=== PATIENT | female | born 1960 ===

== ENCOUNTER 2018-03-17 20:56 | Emergency (ER) | payer MEDICAID, OTHER ==
[2018-03-17 21:01] VITALS: BMI 29.2
[2018-03-17] MEDS ORDERED: Folic Acid 1 MG, Thiamine 100 MG, Multivitamin (MVI) 10 ML in Dextrose 5% In Water 1,00... IV SCH (21:15)
--- NOTE | 2018-03-17 22:10 | ED PDOC ---
Arrival/HPI - General Chief Complaint: Alcohol Ingestion Time Seen by Provider: 03/17/18 21:13 Historian: Patient - History of Present Illness Narrative History of Present Illness (Text): 03/17/18 22:22 Patient is a 57 F with a history of diabetes mellitus II who is presenting via EMS for alcohol intoxication. Patient states she was at a [employer] restaurant by herself and consumed a glass of champagne, a glass of wine and a martini and doesn't remember much after that stating she became very drunk and started vomiting. Patient states whenever she vomits, she also tends to have nose bleeds. Patient states she drank because she was feeling lonely since her father in october, her in November, and her son is away for the [employer]. Patient states she currently has epigastric pain which is a sharp pain whenever she eats. States that this pain has started since her and when she eats she has episodes of vomiting from time to time. Patient denies trauma from what she can recall, denies dizziness, loss of consciousness. ROS limited due to intoxication. Patient denies suicidal ideation , stating she just wanted to celebrate the end of the semester. Time/Duration: Prior to Arrival Past Medical History - Provider Review Nursing Documentation Reviewed: Yes - Infectious Disease Hx of Infectious Diseases: None - Cardiac Hx Cardiac Disorders: No - Pulmonary Hx Bronchitis: Yes - Neurological Hx Neurological Disorder: No - HEENT Hx HEENT Disorder: No Other/Comment: TONSILLECTOMY - Renal Hx Renal Disorder: No - Endocrine/Metabolic Hx Endocrine Disorders: No - Hematological/Oncological Hx Blood Disorders: No Hx AIDS: No - Integumentary Hx Dermatological Disorder: No - Musculoskeletal/Rheumatological Hx Musculoskeletal Disorders: Yes (sciatica) Hx Falls: No - Gastrointestinal Hx Gall Bladder Disease: Yes (CHOLECYSTECTOMY) - Genitourinary/Gynecological Hx Genitourinary Disorders: No Other/Comment: LEFT LUMPECTOMY - Psychiatric Hx Psychophysiologic Disorder: No Hx Substance Use: No - Surgical History Hx Cholecystectomy: Yes Hx Tonsillectomy: Yes Family/Social History - Physician Review Nursing Documentation Reviewed: Yes Family/Social History: Other (non-contrubitory) Smoking Status: Never Smoked Hx Alcohol Use: No Hx Substance Use: No Allergies/Home Meds Allergies/Adverse Reactions: Allergies codeine Allergy (Verified 05/20/17 22:05) tachycardia Review of Systems - Review of Systems Systems not reviewed;Unavailable: Intoxicated Physical Exam - Physical Exam Physical Exam Limitations: Intoxication Vital Signs Reviewed: Yes Vital Signs Temp Pulse Resp BP Pulse Ox 03/17/18 21:26 97.2 F L 64 18 172/89 H 95 Temperature: Afebrile Blood Pressure: Normal Pulse: Regular Respiratory Rate: Normal Appearance: Positive for: Well-Appearing, Non-Toxic, Comfortable Pain Distress: None Mental Status: Positive for: Alert and Oriented X 3 Finger Stick Blood Glucose: 128 - Systems Exam Head: Present: Atraumatic, Normocephalic Pupils: Present: PERRL Extroacular Muscles: Present: EOMI Conjunctiva: Present: Normal Mouth: Present: Moist Mucous Membranes Nose (Internal): Present: Other (dried blood from previous vomiting) Neck: Present: Normal Range of Motion Respiratory/Chest: Present: Clear to Auscultation. No: Wheezes, Rhonchi Abdomen: Present: Tenderness. No: Distention, Peritoneal Signs Upper Extremity: Present: Normal Inspection, Edema Lower Extremity: Present: Normal Inspection, Edema Neurological: Present: GCS=15, CN II-XII Intact, Motor Func Grossly Intact. No : Speech Normal (altered due to intoxication) Skin: Present: Warm, Normal Color. No: Rashes Psychiatric: Present: Intoxicated Medical Decision Making ED Course and Treatment: 03/17/18 22:[address], CT head, Cervical spine x-ray; official read pending Lipase ordered for abdominal pain; zofran and protonix given Alcohol level, [facility] Follow up trop and EKG Patient history endorsed to Dr. Abarca 03/17/18 22:55 Patient re-assessed and symptoms are improving. Patient is now able to express herself without slurring speech. - RAD Interpretation Radiology Orders: 03/17/18 21:58 HEAD W/O CONTRAST [CT] Stat MAXILLOFACIAL W/O CONTRAST [CT] Stat CERVICAL SPINE AP & LATERAL [RAD] Stat - Medication Orders Current Medication Orders: Folic Acid 1 mg/ Thiamine HCl 100 mg/ Multivitamins/Vitamin C 10 ml/ Dextrose 1 ,011.2 mls @ 100 mls/hr IV .Q10H7M ELIANA Last Admin: 03/17/18 21:44 Dose: 100 mls/hr eMAR Start Stop Document 03/17/18 21:44 CNR (Rec: 03/17/18 21:45 CNR [id number]) Intravenous Solution Start Date 03/17/18 Start Time 21:45 Discontinued Medications Ondansetron HCl (Zofran Inj) 4 mg IVP STAT STA Stop: 03/17/18 21:15 Last Admin: 03/17/18 21:24 Dose: 4 mg IVP Administration Document 03/17/18 21:24 CNR (Rec: 03/17/18 21:25 CNR [id number]) Charges for Administration # of IVP Administrations 1 Pantoprazole Sodium (Protonix Inj) 40 mg IVP STAT STA Stop: 03/17/18 22:11 Last Admin: 03/17/18 22:50 Dose: 40 mg Disposition/Present on Arrival - Present on Arrival Any Indicators Present on Arrival: No History of DVT/PE: No History of Uncontrolled Diabetes: No Urinary Catheter: No History of Decub. Ulcer: No History Surgical Site Infection Following: None - Disposition Have Diagnosis and Disposition been Completed?: No Diagnosis: Alcohol intoxication Referrals: PCP,NO [Non-Staff] - Follow up with primary Forms: [employer] (Beninese)
--- NOTE | 2018-03-17 22:54 | ED PDOC ---
Physical Exam Vital Signs Reviewed: Yes Vital Signs Temp Pulse Resp BP Pulse Ox 03/18/18 01:29 68 15 124/68 93 L 03/17/18 21:26 97.2 F L 64 18 172/89 H 95 Temperature: Afebrile Blood Pressure: Hypertensive Pulse: Regular Respiratory Rate: Normal Appearance: Positive for: Well-Appearing, Non-Toxic, Comfortable Pain Distress: None Mental Status: Positive for: Alert and Oriented X 3 Finger Stick Blood Glucose: 128 - Systems Exam Head: Present: Atraumatic, Normocephalic Pupils: Present: PERRL Extroacular Muscles: Present: EOMI Conjunctiva: Present: Normal Ears: Present: Normal Mouth: Present: Moist Mucous Membranes Pharnyx: Present: Normal Nose (External): Present: Atraumatic Nose (Internal): Present: Normal Inspection Neck: Present: Normal Range of Motion Respiratory/Chest: Present: Clear to Auscultation, Good Air Exchange Cardiovascular: Present: Regular Rate and Rhythm Abdomen: Present: Tenderness, Other (mild epigastric discomfort) Back: Present: Normal Inspection, Other (no c-t-l spinal or paraspinal tenderness) Upper Extremity: Present: Normal Inspection, Norm 2-Pt Discrimination Lower Extremity: Present: Normal Inspection Neurological: Present: GCS=15, CN II-XII Intact, Speech Normal, Motor Func Grossly Intact Skin: Present: Warm, Normal Color Psychiatric: Present: Alert, Oriented x 3, Normal Insight, Normal Concentration Medical Decision Making ED Course and Treatment: Patient is a 57 F with a history of diabetes mellitus II who is presenting via EMS for alcohol intoxication. Patient states she was at a [employer] restaurant by herself and consumed a glass of wine and a martini and doesn't remember much after that stating she became very drunk and started vomiting. Patient states whenever she vomits, she also tends to have nose bleeds. Patient states she drank because she was feeling lonely since her father in october, her in November, and her son is away for the [employer]. Patient states she currently has epigastric pain which is a sharp pain whenever she eats. States that this pain has started since her and when she eats she has episodes of vomiting from time to time. Patient denies trauma from what she can recall, denies dizziness, loss of consciousness. ROS limited due to intoxication. ct head FINDINGS: Brain: Mild atrophy. No intracranial hemorrhage. No mass. No edema. Ventricles: No hydrocephalus. Bones/joints: No calvarial fracture. Soft tissues: Unremarkable. Mastoid air cells: No mastoid effusion. IMPRESSION: 1. No intracranial hemorrhage. 2. See facial bone CT report for additional details. ct facial FINDINGS: Limitations: Lack of intravenous contrast. Bones/joints: Depressed fracture medial wall of RIGHT orbit. Degenerative changes of cervical spine. Soft tissues: Minimal RIGHT maxillary/zygomatic soft tissue swelling. Focal soft tissue swelling along left mandible. Orbits: Minimal air within RIGHT orbit. Sinuses: Scattered mild mucosal thickening of ethmoid sinuses. No air-fluid levels. Dental: Periapical lucency/cortical erosion along left lower molar compatible with dental disease. IMPRESSION: 1. Facial fracture as above. 2. Dental disease of left normal or with overlying soft tissue swelling. Clinical correlation is needed. 3. Incidental/non-acute findings are described above. c-spine xray FINDINGS: Vertebrae: No acute fracture. Normal alignment. Disc spaces: Moderate degenerative disc disease within mid to lower cervical spine. Soft tissues: Unremarkable. Vasculature: Mild atherosclerotic disease of left carotid artery. IMPRESSION: 1. No fracture. 2. If neck pain persists, consider MRI for further evaluation. 3. Incidental/non-acute findings are described above. CXR: FINDINGS: Limitations: Rotation - mild. Radiographic technique - mild. Lungs: Mild underinflation. No consolidation. Pleural space: No pleural effusion. No pneumothorax. Heart: No cardiomegaly. Mediastinum: Unremarkable. Bones/joints: No displaced fracture. Tubes, lines and devices: Leads overlying chest. Upper abdomen: Surgical clips within RIGHT upper quadrant. IMPRESSION: 1. No definite acute cardiopulmonary disease. 2. Incidental/non-acute findings are described above. you were treated in the ED today for for alcohol intoxication, with falls/ unclear head injury, with vomiting with nose bleed but no vomiting up blood and feels lonely but otherwise without any thoughts to harm self or others or neck pain/loss of consciousness/hallucinations/headache/dizziness/difficulty breathing/chest pain/abdomen pain/numbness/tingling/loss of limb function/pain with urination. You were otherwise breathing easily, talking easily, good strength/sensation, walking easily, clear lungs, no abdomen tenderness, good visual acuity in both eyes and good eye movement without pain without over cut but mild superficial abrasions without crepitus/crunching on the skin, no spinal tenderness, no fever temp 97.2, stable heart rate 64, stable breathing rate 18, excellent oxygen level 95% room air, elevated blood pressure 172/89 which we recommend repeat in 2-3 days primary care office to determine further treatment, you have blood tests no infection count 8, stable blood level hemoglobin 12/platelets 306, stable chemistry, glucose elevated 171, liver AST/ ALT elevated 180/96, heart blood test less than 0.01, lipase 89 normal, alcohol elevated 211, salicylate negative, acetaminophen negative, radiology ct head no acute intracranial, ct facial Depressed fracture medial wall of RIGHT orbit, c- spine xray no fracture, chest xray no definate acute cardiopulmonary disease, ECG normal sinus rhythm, saline, zofran, protonix, keflex, tetanus booster as you felt it was out of date past 5 years, observation done in the ED with improvement, discussed with ophthalmology Dr. Augustus Stroud regarding your Depressed fracture medial wall of RIGHT orbit and who stated no immediate intervention at this time and can followup as an outpatient to ensure further care, counselled to stop drinking alcohol and thus discharged home with safe ride. 1. Recommend keflex as directed for fracture infection prevention. 2. Recommend tylenol as directed for pain. 3. Recommend follow-up primary care 2-3 days to review symptoms, referral to gastroenterology clinic to review your symptoms, referral to detoxification clinic to review symptoms and stop drinking alcohol, referral to ear nose throat clinic for nasal bleeding intermittently but without active bleeding in the ED to ensure further care, referral to ophthalmology clinic for Depressed fracture medial wall of RIGHT orbit to ensure further care and call [phone] Augustus Stroud ophthalmology to review your care to ensure further care, referral to dentistry for overall care/lucency to ensure no complications/cancer development, referral to endocrine clinic for mildly elevated blood sugar for further care, referral to gastroenterology clinic for mildly elevated liver tests AST/ALT to ensure further care. 4. recommend family/friends monitor you every 1-2 hours for alertness or any unusual drowsiness or any medical condition for 24hrs or If any worsening pain, fever, chills, nausea, vomiting, difficulty breathing, numbness, loss of limb function, pain with urination or any medical condition at any time then return to the ED. 03/18/18 07:27 Reassessment Condition: Re-examined, Improved - Lab Interpretations Lab Results: 03/17/18 22:50 03/17/18 23:30 Lab Results 03/17/18 23:30: Lipase 105 03/17/18 23:30: Salicylates < 1 L, Acetaminophen < 10.0 L 03/17/18 23:30: Alcohol, Quantitative 211 H 03/17/18 23:30: Sodium 147, Potassium 4.1, Chloride 104, Carbon Dioxide 23, Anion Gap 24 H, BUN 13, Creatinine 1.2, Est GFR ( Amer) 56, Est GFR (Non- Af Amer) 46, Random Glucose 171 H, Calcium 9.4, Phosphorus 3.9, Magnesium 1.8, Total Bilirubin 0.3, AST 180 H, ALT 96 H, Alkaline Phosphatase 60, Troponin I < 0.01, Total Protein 8.0, Albumin 4.7, Globulin 3.3, Albumin/Globulin Ratio 1.4, Lipase 89 03/17/18 22:50: WBC 8.1 D, RBC 4.37, Hgb 12.9, Hct 38.4, MCV 87.9, MCH 29.5, MCHC 33.6, RDW 13.7, Plt Count 306, MPV 9.3, Gran % 77.6 H, Lymph % (Auto) 19.4 L, [place] % (Auto) 2.0, Eos % (Auto) 0.6 L, Baso % (Auto) 0.4, Gran # 6.30, Lymph # (Auto) 1.6, [place] # (Auto) 0.2, Eos # (Auto) 0.1, Baso # (Auto) 0.03 I have reviewed the lab results: Yes - RAD Interpretation Radiology Orders: 03/17/18 21:58 HEAD W/O CONTRAST [CT] Stat MAXILLOFACIAL W/O CONTRAST [CT] Stat CERVICAL SPINE AP & LATERAL [RAD] Stat 03/17/18 22:58 CHEST PORTABLE [RAD] Stat - EKG Interpretation Interpreted by ED Physician: Yes (NSR, flipped t waves avr, v1, flattened) Type: 12 lead EKG - Medication Orders Current Medication Orders: Folic Acid 1 mg/ Thiamine HCl 100 mg/ Multivitamins/Vitamin C 10 ml/ Dextrose 1 ,011.2 mls @ 100 mls/hr IV .Q10H7M ELIANA Last Admin: 03/17/18 21:44 Dose: 100 mls/hr eMAR Start Stop Document 03/17/18 21:44 CNR (Rec: 03/17/18 21:45 CNR [id number]) Intravenous Solution Start Date 03/17/18 Start Time 21:45 End Date 03/18/18 End time 02:37 Total Infusion Time 292 Discontinued Medications Acetaminophen (Tylenol 325mg Tab) 650 mg PO STAT STA Stop: 03/18/18 03:09 Last Admin: 03/18/18 02:43 Dose: 650 mg Ondansetron HCl (Zofran Inj) 4 mg IVP STAT STA Stop: 03/17/18 21:15 Last Admin: 03/17/18 21:24 Dose: 4 mg IVP Administration Document 03/17/18 21:24 CNR (Rec: 03/17/18 21:25 CNR [id number]) Charges for Administration # of IVP Administrations 1 Pantoprazole Sodium (Protonix Inj) 40 mg IVP STAT STA Stop: 03/17/18 22:11 Last Admin: 03/17/18 22:50 Dose: 40 mg IVP Administration Document 03/17/18 22:50 CNR (Rec: 03/17/18 22:52 CNR [id number]) Charges for Administration # of IVP Administrations 1 Disposition/Present on Arrival - Present on Arrival Any Indicators Present on Arrival: No History of DVT/PE: No History of Uncontrolled Diabetes: No Urinary Catheter: No History of Decub. Ulcer: No History Surgical Site Infection Following: None - Disposition Have Diagnosis and Disposition been Completed?: Yes Diagnosis: Alcohol intoxication, Orbital fracture, Head injury Disposition: HOME/ ROUTINE Disposition Time: 07:26 Patient Plan: Discharge Patient Problems: Current Active Problems Problem Status Onset Alcohol intoxication Acute Condition: IMPROVED Discharge Instructions (ExitCare): Alcohol Abuse and Alcoholism (DC), Head Injury Observation (DC), Skull and Facial Fractures (DC) Additional Instructions: you were treated in the ED today for for alcohol intoxication, with falls/ unclear head injury, with vomiting with nose bleed but no vomiting up blood and feels lonely but otherwise without any thoughts to harm self or others or neck pain/loss of consciousness/hallucinations/headache/dizziness/difficulty breathing/chest pain/abdomen pain/numbness/tingling/loss of limb function/pain with urination. You were otherwise breathing easily, talking easily, good strength/sensation, walking easily, clear lungs, no abdomen tenderness, good visual acuity in both eyes and good eye movement without pain without over cut but mild superficial abrasions without crepitus/crunching on the skin, no spinal tenderness, no fever temp 97.2, stable heart rate 64, stable breathing rate 18, excellent oxygen level 95% room air, elevated blood pressure 172/89 which we recommend repeat in 2-3 days primary care office to determine further treatment, you have blood tests no infection count 8, stable blood level hemoglobin 12/platelets 306, stable chemistry, glucose elevated 171, liver AST/ ALT elevated 180/96, heart blood test less than 0.01, lipase 89 normal, alcohol elevated 211, salicylate negative, acetaminophen negative, radiology ct head no acute intracranial, ct facial Depressed fracture medial wall of RIGHT orbit, c- spine xray no fracture, chest xray no definate acute cardiopulmonary disease, ECG normal sinus rhythm, saline, zofran, protonix, keflex, tetanus booster as you felt it was out of date past 5 years, observation done in the ED with improvement, discussed with ophthalmology Dr. Augustus Stroud regarding your Depressed fracture medial wall of RIGHT orbit and who stated no immediate intervention at this time and can followup as an outpatient to ensure further care, counselled to stop drinking alcohol and thus discharged home with safe ride. 1. Recommend keflex as directed for fracture infection prevention. 2. Recommend tylenol as directed for pain. 3. Recommend follow-up primary care 2-3 days to review symptoms, referral to gastroenterology clinic to review your symptoms, referral to detoxification clinic to review symptoms and stop drinking alcohol, referral to ear nose throat clinic for nasal bleeding intermittently but without active bleeding in the ED to ensure further care, referral to ophthalmology clinic for Depressed fracture medial wall of RIGHT orbit to ensure further care and call [phone] Augustus Stroud ophthalmology to review your care to ensure further care, referral to dentistry for overall care/lucency to ensure no complications/cancer development, referral to endocrine clinic for mildly elevated blood sugar for further care, referral to gastroenterology clinic for mildly elevated liver tests AST/ALT to ensure further care. 4. recommend family/friends monitor you every 1-2 hours for alertness or any unusual drowsiness or any medical condition for 24hrs or If any worsening pain, fever, chills, nausea, vomiting, difficulty breathing, numbness, loss of limb function, pain with urination or any medical condition at any time then return to the ED. Prescriptions: Cephalexin [cephalexin] 250 mg PO Q6 3 Days #12 cap Referrals: PCP,NO [Primary Care Provider] - Follow up with primary Forms: [employer] (Faroese)
[2018-03-17 23:00] LABS: BASO # 0.03 K/mm3 (0.0-2.0); BASO % 0.4 % (0.0-3.0); EOS # 0.1 (0.0-0.7); EOS % 0.6 % (1.5-5.0); GRAN # 6.3 (1.4-6.5); GRAN % 77.6 % (50.0-68.0); HEMOGLOBIN 12.9 g/dL (12.0-16.0); LYMPH # 1.6 (1.2-3.4); LYMPH % 19.4 % (22.0-35.0); MEAN CELL VOLUME 87.9 fl (80.0-105.0); MEAN CORPUSCULAR HEMOGLOBIN 29.5 pg (25.0-35.0); MEAN CORPUSCULAR HGB CONC 33.6 g/dl (31.0-37.0); MEAN PLATELET VOLUME 9.3 fl (7.0-11.0); MONO # 0.2 (0.1-0.6); RBC 4.37 10^6/uL (3.5-6.1); RED CELL DISTRIBUTION WIDTH 13.7 % (11.5-14.5); WHITE BLOOD COUNT 8.1 10^3/ul (4.5-11.0)
--- NOTE | 2018-03-17 23:13 | CT ---
EXAM: CT Head Without Intravenous Contrast CLINICAL HISTORY: 57 years old, female; Injury or trauma; Fall; Initial encounter; Abrasion; Face; Injury date: 03-17-18; Injury details: Abrasion to rt side of face; Additional info: Trauma, alcohol intoxication TECHNIQUE: Axial computed tomography images of the head/brain without intravenous contrast. All CT scans at this facility use one or more dose reduction techniques, viz.: automated exposure control; ma/kV adjustment per patient size (including targeted exams where dose is matched to indication; i.e. head); or iterative reconstruction technique. Coronal and sagittal reformatted images were created and reviewed. COMPARISON: No relevant prior studies available. FINDINGS: Brain: Mild atrophy. No intracranial hemorrhage. No mass. No edema. Ventricles: No hydrocephalus. Bones/joints: No calvarial fracture. Soft tissues: Unremarkable. Mastoid air cells: No mastoid effusion. IMPRESSION: 1. No intracranial hemorrhage. 2. See facial bone CT report for additional details.
--- NOTE | 2018-03-17 23:19 | CT ---
EXAM: CT Maxillofacial Without Intravenous Contrast CLINICAL HISTORY: 57 years old, female; Injury or trauma; Fall; Initial encounter; Abrasion; Cheek bone; Right; Injury date: 03-17-18; Injury details: Abrasion to rt side of face; Additional info: Trauma, alcohol intoxication TECHNIQUE: Axial computed tomography images of the face without intravenous contrast. All CT scans at this facility use one or more dose reduction techniques, viz.: automated exposure control; ma/kV adjustment per patient size (including targeted exams where dose is matched to indication; i.e. head); or iterative reconstruction technique. Coronal and sagittal reformatted images were created and reviewed. COMPARISON: No relevant prior studies available. FINDINGS: Limitations: Lack of intravenous contrast. Bones/joints: Depressed fracture medial wall of RIGHT orbit. Degenerative changes of cervical spine. Soft tissues: Minimal RIGHT maxillary/zygomatic soft tissue swelling. Focal soft tissue swelling along left mandible. Orbits: Minimal air within RIGHT orbit. Sinuses: Scattered mild mucosal thickening of ethmoid sinuses. No air-fluid levels. Dental: Periapical lucency/cortical erosion along left lower molar compatible with dental disease. IMPRESSION: 1. Facial fracture as above. 2. Dental disease of left normal or with overlying soft tissue swelling. Clinical correlation is needed. 3. Incidental/non-acute findings are described above.
--- NOTE | 2018-03-17 23:22 | RAD ---
EXAM: XR Cervical Spine, 2 or 3 Views CLINICAL HISTORY: 57 years old, female; Injury or trauma; Fall; Initial encounter; Concussion /head injury; Additional info: Trauma, alcohol intoxication TECHNIQUE: Frontal and lateral views of the cervical spine. COMPARISON: No relevant prior studies available. FINDINGS: Vertebrae: No acute fracture. Normal alignment. Disc spaces: Moderate degenerative disc disease within mid to lower cervical spine. Soft tissues: Unremarkable. Vasculature: Mild atherosclerotic disease of left carotid artery. IMPRESSION: 1. No fracture. 2. If neck pain persists, consider MRI for further evaluation. 3. Incidental/non-acute findings are described above.
[2018-03-17 23:54] LABS: ALB/GLOB RATIO 1.4 (1.1-1.8); ALBUMIN 4.7 g/dL (3.0-4.8); ALT/SGPT 96 U/L (7-56); AST/SGOT 180 U/L (14-36); BLOOD UREA NITROGEN 13 mg/dL (7-21); CALCIUM 9.4 mg/dL (8.4-10.5); GFR AFRICAN-AMERICAN 56; GFR NON-AFRICAN AMERICAN 46; LIPASE 89 U/L (23-300)
--- NOTE | 2018-03-17 23:56 | RAD ---
EXAM: XR Chest, 1 View CLINICAL HISTORY: 57 years old, female; Pain; Other: Alochol intoxication; Additional info: 57yof, with alcohol intoxication TECHNIQUE: Frontal view of the chest. COMPARISON: CR - CHEST TWO VIEWS (PA/LAT) 2016-01-04 08:27 FINDINGS: Limitations: Rotation - mild. Radiographic technique - mild. Lungs: Mild underinflation. No consolidation. Pleural space: No pleural effusion. No pneumothorax. Heart: No cardiomegaly. Mediastinum: Unremarkable. Bones/joints: No displaced fracture. Tubes, lines and devices: Leads overlying chest. Upper abdomen: Surgical clips within RIGHT upper quadrant. IMPRESSION: 1. No definite acute cardiopulmonary disease. 2. Incidental/non-acute findings are described above.
[2018-03-18 00:05] LABS: TROPONIN I < 0.01 ng/mL
[2018-03-18 00:32] LABS: ACETAMINOPHEN < 10.0 ug/ml (10.0-20.0); SALICYLATE < 1 mg/dL (2.0-20.0)
[2018-03-18 01:32] VITALS: PULSE 68
[2018-03-18] MEDS ORDERED: TDAP Vaccine 0.5 mL Syr IM ONE (07:25)
[2018-03-18 07:42] VITALS: BP 141/80; RESP 18; TEMP 97.1; O2SAT 100
--- NOTE | 2018-03-18 08:47 | CARD ---
APPROVED REPORT EKG Measurement Heart [id number] <Conclusion> Normal sinus rhythm Left axis deviation PRWP V 1 - 6, possibly due to lead poitioning.
== END 2018-03-18 07:41 | disposition home or self-care (01) ==
LOC: ED 20:56
DX: F10.129 Alcohol abuse with intoxication, unspecified (principal); S02.81XA Fracture of other specified skull and facial bones, right side, initial encounter for closed fracture; X58.XXXA Exposure to other specified factors, initial encounter; E11.9 Type 2 diabetes mellitus without complications
CPT/HCPCS: 70450; 70486; 71045; 72040; 80053; 80320; 80329; 83690; 83735; 84100; 84484; 85025; 90471; 90715; 90791; 93005; 96365; 96366; 96375; 99284; C9113; J2405; J3411; J7070

== ENCOUNTER 2018-09-12 18:26 | Inpatient (IN) | payer MEDICAID, OTHER ==
[2018-09-12 18:26] VITALS: BMI 29.2
[2018-09-12 20:09] LABS: HEMOGLOBIN 12.4 g/dL (12.0-16.0); MEAN CELL VOLUME 89.9 fl (80.0-105.0); MEAN CORPUSCULAR HEMOGLOBIN 29.7 pg (25.0-35.0); MEAN CORPUSCULAR HGB CONC 33.1 g/dl (31.0-37.0); MEAN PLATELET VOLUME 9.3 fl (7.0-11.0); RBC 4.17 10^6/uL (3.5-6.1); RED CELL DISTRIBUTION WIDTH 13.2 % (11.5-14.5); WHITE BLOOD COUNT 13.1 10^3/uL (4.5-11.0)
[2018-09-12 20:15] LABS: ALB/GLOB RATIO 1.2 (1.1-1.8); ALBUMIN 4.7 g/dL (3.0-4.8); ALT/SGPT 28 U/L (7-56); AST/SGOT 35 U/L (14-36); BLOOD UREA NITROGEN 16 mg/dL (7-21); CALCIUM 9.8 mg/dL (8.4-10.5); GFR NON-AFRICAN AMERICAN 46; LIPASE 57 U/L (23-300)
[2018-09-12 20:20] LABS: INR 1.07; PARTIAL THROMBOPLASTIN TIME 27.5 Seconds (25.1-36.5); PROTHROMBIN TIME 12.2 SECONDS (9.4-12.5)
--- NOTE | 2018-09-12 20:29 | ED PDOC ---
Arrival/HPI - General Chief Complaint: GI Problem Time Seen by Provider: 09/12/18 19:15 Historian: Patient - History of Present Illness Narrative History of Present Illness (Text): 09/12/18 20:25 58 year old female, whose past medical history includes diabetes and hypertension, presents to the emergency department with nausea and vomiting, since today. Patient states she has also been having a dizzy funny sensation in her head at times. Patient informs having an area of swelling in her right inner thigh. Patient states she was told by her PMD that it was an infection, and was treated by oral antibiotics. Patient also informs having a subjective fever. Patient denies any chest pain, abdominal pain, diarrhea, or any other complaints. Time/Duration: Prior to Arrival Symptom Course: Unchanged Past Medical History - Provider Review Nursing Documentation Reviewed: Yes - Infectious Disease Hx of Infectious Diseases: None - Cardiac Hx Cardiac Disorders: Yes Hx Hypertension: Yes - Pulmonary Hx Respiratory Disorders: Yes Hx Bronchitis: Yes - Neurological Hx Neurological Disorder: No - HEENT Hx HEENT Disorder: Yes Other/Comment: TONSILLECTOMY - Renal Hx Renal Disorder: No - Endocrine/Metabolic Hx Endocrine Disorders: Yes Hx Diabetes Mellitus Type 2: Yes - Hematological/Oncological Hx Blood Disorders: No - Integumentary Hx Dermatological Disorder: Yes Other/Comment: SKIN INFECTION - Musculoskeletal/Rheumatological Hx Musculoskeletal Disorders: Yes Hx Back Pain: Yes - Gastrointestinal Hx Gastrointestinal Disorders: Yes Hx Gall Bladder Disease: Yes (CHOLECYSTECTOMY) - Genitourinary/Gynecological Hx Genitourinary Disorders: Yes Other/Comment: LEFT LUMPECTOMY - Psychiatric Hx Psychophysiologic Disorder: No Hx Substance Use: No - Surgical History Hx Cholecystectomy: Yes Hx Tonsillectomy: Yes Family/Social History - Physician Review Nursing Documentation Reviewed: Yes Family/Social History: No Known Family HX Smoking Status: Never Smoked Hx Alcohol Use: No Hx Substance Use: No Allergies/Home Meds Allergies/Adverse Reactions: Allergies codeine Allergy (Verified 09/12/18 18:35) tachycardia Home Medications: Home Meds Medication Instructions Recorded Confirmed Empagliflozin [Jardiance] 25 mg PO DAILY 09/12/18 09/12/18 Lisinopril [Zestril] 10 mg PO DAILY 09/12/18 09/12/18 Metformin HCl [Metformin] 500 mg PO BID 11/08/18 11/08/18 Review of Systems - Physician Review All systems were reviewed & negative as marked: Yes - Review of Systems Constitutional: Fevers Cardiovascular: absent: Chest Pain Gastrointestinal: Nausea, Vomiting. absent: Abdominal Pain, Diarrhea Skin: Rash Neurological: Dizziness Physical Exam Vital Signs Reviewed: Yes Vital Signs Temp Pulse Resp BP Pulse Ox 09/12/18 19:59 75 18 152/78 H 98 09/12/18 18:57 98.2 F 78 18 159/86 H 98 Temperature: Afebrile Blood Pressure: Hypertensive Pulse: Regular Respiratory Rate: Normal Appearance: Positive for: Well-Appearing, Non-Toxic, Comfortable Pain Distress: None Mental Status: Positive for: Alert and Oriented X 3 - Systems Exam Head: Present: Atraumatic, Normocephalic Pupils: Present: PERRL Extroacular Muscles: Present: EOMI Conjunctiva: Present: Normal Mouth: Present: Moist Mucous Membranes Neck: Present: Normal Range of Motion Respiratory/Chest: Present: Clear to Auscultation, Good Air Exchange. No: Re spiratory Distress, Accessory Muscle Use Cardiovascular: Present: Regular Rate and Rhythm, Normal S1, S2. No: Murmurs Abdomen: No: Tenderness, Distention, Peritoneal Signs Back: Present: Normal Inspection Upper Extremity: Present: Normal Inspection. No: Cyanosis, Edema Lower Extremity: Present: Tenderness (Some palpable tenderness to area of swelling), Swelling (Indurated, Non-fluctuant swelling ), Erythema (right inner thigh) Neurological: Present: GCS=15, CN II-XII Intact, Speech Normal, Motor Func Grossly Intact, Normal Sensory Function Skin: Present: Warm, Dry, Normal Color. No: Rashes Psychiatric: Present: Alert, Oriented x 3, Normal Insight, Normal Concentration Medical Decision Making ED Course and Treatment: 09/12/18 20:38 Impression: 58 year old female presents with nausea and vomiting. Plan: -- CT Head -- Chest X-ray -- EKG -- Labs -- Pepcid -- Zofran -- Reassess and disposition Prior Visits: Notes and results from previous visits were reviewed. Progress Notes: 09/12/18 21:34 CT Head reviewed by radiologist, shows: No acute parenchymal abnormality. 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 Clinical correlation advised. 09/12/18 21:35 Chest X-ray reviewed by me, shows: No acute process. 09/12/18 21:37 Case discussed with medical transcription editor and house doctor, Dr. Balderas, who accept admission. - Lab Interpretations Lab Results: 09/12/18 19:52 09/12/18 19:52 Lab Results 09/12/18 19:52: WBC 13.1 H, RBC 4.17, Hgb 12.4, Hct 37.5, MCV 89.9, MCH 29.7, MCHC 33.1, RDW 13.2, Plt Count 324, MPV 9.3 09/12/18 19:52: PT 12.2, INR 1.07, APTT 27.5 09/12/18 19:52: Sodium 143, Potassium 4.6, Chloride 103, Carbon Dioxide 24, Anion Gap 21 H, BUN 16, Creatinine 1.2, Est GFR ( Amer) 56, Est GFR (Non- Af Amer) 46, Random Glucose 169 H, Calcium 9.8, Total Bilirubin 0.7, AST 35, ALT 28, Alkaline Phosphatase 76, Lactate Dehydrogenase 557, Total Creatine Kinase 286 H, CK-MB (CK-2) Pending, CK-MB (CK-2) % Pending, Troponin I Pending, Total Protein 8.6 H, Albumin 4.7, Globulin 3.9, Albumin/Globulin Ratio 1.2, Lipase 57 - RAD Interpretation Radiology Orders: 09/12/18 19:26 HEAD W/O CONTRAST [CT] Stat 09/12/18 19:27 CHEST PORTABLE [RAD] Stat - EKG Interpretation EKG Interpretation (Text): 09/12/18 20:40 Normal Sinus Rhythm @85 bpm Anterolateral Infarct Nonspecific STT Changes Interpreted by ED Physician: Yes Type: 12 lead EKG - Scribe Statement The provider has reviewed the documentation as recorded by the Vidhi Turner Provider Scribe Attestation: All medical record entries made by the Scribe were at my direction and personally dictated by me. I have reviewed the chart and agree that the record accurately reflects my personal performance of the history, physical exam, medical decision making, and the department course for this patient. I have also personally directed, reviewed, and agree with the discharge instructions and disposition. Disposition/Present on Arrival - Present on Arrival Any Indicators Present on Arrival: No History of DVT/PE: No History of Uncontrolled Diabetes: No Urinary Catheter: No History of Decub. Ulcer: No History Surgical Site Infection Following: None - Disposition Have Diagnosis and Disposition been Completed?: Yes Diagnosis: Cellulitis, Vomiting, Diabetes mellitus Disposition: HOSPITALIZED Disposition Time: 21:29 Patient Problems: Current Active Problems Problem Status Onset Cellulitis Acute Diabetes mellitus Acute Vomiting Acute Condition: STABLE Discharge Instructions (ExitCare): Cellulitis (ED) Forms: [employer] (Faroese)
[2018-09-12 20:30] LABS: CK-MB 2.5 ng/mL (0.0-3.6); TROPONIN I < 0.01 ng/mL
[2018-09-12] MEDS ORDERED: Sodium Chloride 0.9% 1,000 ML IV STA (20:35)
[2018-09-12] MEDS ORDERED: Piperacillin/Tazobact 3.375 gm 100 ML IV STA (21:25)
[2018-09-12] MEDS ORDERED: Vancomycin 1gm in NS 250ml 1 GM/250 ML BAG IVPB STA (21:28)
[2018-09-12] MEDS ORDERED: Sodium Chloride 0.9% 1,000 ML IV SCH (22:30)
--- NOTE | 2018-09-12 23:14 | CP.PCM.HP ---
<Milad Ambriz - Last Filed: 09/12/18 23:52> History of Present Illness - History of Present Illness History of Present Illness: Milad Ambriz DO, PGY-1 Hospitalist Admission History and Physical for Dr. Harris CC: nausea/vomiting, dizziness, abscess on R thigh HPI: Ms. Holt is a 58 year old female with PMH of DM2 and HTN who presents to ED with intractable nausea/vomiting worsening over the past day. She saw her PMD today for concern of an area of worsening redness and swelling on her R medial thigh. He prescribed an antibiotic which she filled and took x 1 dose. Since then she has felt nauseous, vomited twice, and has felt dizzy. She believes the antibiotic was most likely amoxicillin, but she has taken augmentin in the past with no reaction. She endorses GUERRIER at this time but denies fever/chills, CP, SOB, blurred vision, changes in urination, or dysuria. PMD: Karlee Looney MD Past Medical Hx: DM2, HTN Past Surgical Hx: lap kianna, tonsillectomy, c/s x 1 Allergies: codeine Home medications: lisinopril 10 daily, metformin 500 BID, jardiance 25 daily, glimepiride 4 BID Family Hx: mother had DM2, CKD. father had lung CA Social Hx: denies tobacco or illicit drug use. Reports social alcohol use but has been seen in ED twice for alcohol intoxication. Pharmacy: [id number] Present on Admission - Present on Admission Any Indicators Present on Admission: No History of DVT/PE: No History of Uncontrolled Diabetes: No Urinary Catheter: No Decubitus Ulcer Present: No Review of Systems - Constitutional Constitutional: absent: Chills, Fever - EENT Eyes: absent: Blurred Vision - Cardiovascular Cardiovascular: absent: Chest Pain, Dyspnea - Respiratory Respiratory: absent: Cough, Dyspnea - Gastrointestinal Gastrointestinal: Abdominal Pain, Nausea, Vomiting - Genitourinary Genitourinary: absent: Change in Urinary Stream, Dysuria Past Patient History - Infectious Disease Hx of Infectious Diseases: None - Past Social History Smoking Status: Never Smoked - CARDIAC Hx Cardiac Disorders: Yes Hx Hypertension: Yes - PULMONARY Hx Respiratory Disorders: Yes Hx Bronchitis: Yes - NEUROLOGICAL Hx Neurological Disorder: No - HEENT Hx HEENT Problems: Yes Other/Comment: TONSILLECTOMY - RENAL Hx Chronic Kidney Disease: No - ENDOCRINE/METABOLIC Hx Endocrine Disorders: Yes Hx Diabetes Mellitus Type 2: Yes - HEMATOLOGICAL/ONCOLOGICAL Hx Blood Disorders: No - INTEGUMENTARY Hx Dermatological Problems: Yes Other/Comment: SKIN INFECTION - MUSCULOSKELETAL/RHEUMATOLOGICAL Hx Musculoskeletal Disorders: Yes Hx Back Pain: Yes - GASTROINTESTINAL Hx Gastrointestinal Disorders: Yes Hx Gall Bladder Disease: Yes (CHOLECYSTECTOMY) - GENITOURINARY/GYNECOLOGICAL Hx Genitourinary Disorders: Yes Other/Comment: LEFT LUMPECTOMY - PSYCHIATRIC Hx Psychophysiologic Disorder: No Hx Substance Use: No - SURGICAL HISTORY Hx Cholecystectomy: Yes Hx Tonsillectomy: Yes Meds Allergies/Adverse Reactions: Allergies Allergy/AdvReac Type Severity Reaction Status Date / Time codeine Allergy tachycardia Verified 09/12/18 18:35 Physical Exam - Constitutional Appears: Non-toxic, No Acute Distress - Head Exam Head Exam: ATRAUMATIC, NORMOCEPHALIC - Eye Exam Eye Exam: EOMI, Normal appearance, PERRL - ENT Exam ENT Exam: Mucous Membranes Moist - Neck Exam Neck exam: Positive for: Full Rom, Normal Inspection - Respiratory Exam Respiratory Exam: Clear to Auscultation Bilateral, NORMAL BREATHING PATTERN. absent: Rales, Rhonchi, Wheezes - Cardiovascular Exam Cardiovascular Exam: REGULAR RHYTHM, RRR, +S1, +S2. absent: Diastolic murmur, Gallop, Rubs, Systolic Murmur - GI/Abdominal Exam GI & Abdominal Exam: Tenderness (mild tenderness to palpation suprapubic region). absent: Distended, Firm, Guarding, Hernia, Organomegaly, Rebound - Extremities Exam Extremities exam: Positive for: full ROM, normal inspection. Negative for: pedal edema - Back Exam Back exam: NORMAL INSPECTION - Neurological Exam Neurological exam: Alert, Oriented x3 - Psychiatric Exam Psychiatric exam: Normal Affect, Normal Mood - Skin Skin Exam: Dry, Intact, Warm Additional comments: An approximately 3 cm indurated plaque on the right medial thigh is firm and warm to palpation; it is most likely a skin abscess Results - Vital Signs Recent Vital Signs: Last Vital Signs Temp 98.2 F 09/12/18 18:57 Pulse 68 09/12/18 22:57 Resp 18 09/12/18 22:57 BP 148/70 09/12/18 22:57 Pulse Ox 98 09/12/18 22:57 - Labs Result Diagrams: 09/12/18 19:52 09/12/18 19:52 Labs: Laboratory Results - last 24 hr 09/12/18 09/12/18 09/12/18 19:52 19:52 19:52 WBC 13.1 H RBC 4.17 Hgb 12.4 Hct 37.5 MCV 89.9 MCH 29.7 MCHC 33.1 RDW 13.2 Plt Count 324 MPV 9.3 PT 12.2 INR 1.07 APTT 27.5 Sodium 143 Potassium 4.6 Chloride 103 Carbon Dioxide 24 Anion Gap 21 H BUN 16 Creatinine 1.2 Est GFR ( Amer) 56 Est GFR (Non-Af Amer) 46 Random Glucose 169 H Calcium 9.8 Total Bilirubin 0.7 AST 35 ALT 28 Alkaline Phosphatase 76 Lactate Dehydrogenase 557 Total Creatine Kinase 286 H CK-MB (CK-2) 2.5 CK-MB (CK-2) % Cancelled Troponin I < 0.01 Total Protein 8.6 H Albumin 4.7 Globulin 3.9 Albumin/Globulin Ratio 1.2 Lipase 57 Assessment & Plan - Assessment and Plan (Free Text) Assessment: 58 yo F with PMH of DM2 and HTN is admitted for management of intractable nausea/vomiting and R thigh abscess. Plan: 1. Intractable nausea/vomiting May be 2/2 recent antibiotic use although patient has not had a reaction to augmentin in the past May also be 2/2 worsening skin/soft tissue infection on the R medial thigh Zofran 4 mg IVP q4h PRN for nausea/vomiting Daily IV protonix until tolerating PO Clear liquid diet, advance as tolerated Fluid supplementation with NS at 100 cc/hr Loperamide PRN for diarrhea 2. R medial thigh abscess Blood cx sent, will also get UA reflex culture Vanc/zosyn started in ED, will continue Surgery consulted for evaluation for I & D ID consulted for further abx recs 3. Hx DM2 Hold home diabetes medicines ISS with point of care fingerstick glucose ACHS while admitted A1c, lipid panel ordered 4. Hx HTN Continue home lisinopril DVT/GI PPX: Lovenox, protonix Full Code Clear liquid diet but advance as tolerated Monitor on med/surg Case and plan reviewed and discussed with my attending Dr. Steven Ambriz, DO IM Resident PGY-1 <Shabbir Harris - Last Filed: 11/09/18 06:24> Results - Vital Signs Recent Vital Signs: Last Vital Signs Temp 98.1 F 09/12/18 23:40 Pulse 85 09/12/18 23:40 Resp 18 09/13/18 02:08 BP 150/82 09/12/18 23:40 Pulse Ox 100 09/12/18 23:40 - Labs Result Diagrams: 09/12/18 19:52 09/12/18 19:52 Labs: Laboratory Results - last 24 hr 09/12/18 09/12/18 09/12/18 19:52 19:52 19:52 WBC 13.1 H RBC 4.17 Hgb 12.4 Hct 37.5 MCV 89.9 MCH 29.7 MCHC 33.1 RDW 13.2 Plt Count 324 MPV 9.3 PT 12.2 INR 1.07 APTT 27.5 Sodium 143 Potassium 4.6 Chloride 103 Carbon Dioxide 24 Anion Gap 21 H BUN 16 Creatinine 1.2 Est GFR ( Amer) 56 Est GFR (Non-Af Amer) 46 Random Glucose 169 H Calcium 9.8 Total Bilirubin 0.7 AST 35 ALT 28 Alkaline Phosphatase 76 Lactate Dehydrogenase 557 Total Creatine Kinase 286 H CK-MB (CK-2) 2.5 CK-MB (CK-2) % Cancelled Troponin I < 0.01 Total Protein 8.6 H Albumin 4.7 Globulin 3.9 Albumin/Globulin Ratio 1.2 Lipase 57 Attending/Attestation - Attestation I have personally seen and examined this patient.: Yes I have fully participated in the care of the patient.: Yes I have reviewed all pertinent clinical information: Yes Notes (Text): Patient seen and examined with the residents, agree with above n/v after taking what patient states is Amoxicillin given by her PMD today for a thigh/labial abscess subjective fevers at home, afebrile thus far, mild leukocytosis supportive care for nausea/vomiting Surgery evaluation for right lower extremity thigh abscess Blood cx, Broad spectrum Abx with Zyvox/Zosyn as per ID. Will monitor for any allergic reaction as penicillin containing Zosyn started by ER. strict glycemic control, pain medication prn
[2018-09-12] MEDS ORDERED: Alum-Mag Hydrox-Simethicone Susp (30 mL) PO PRN (23:55)
[2018-09-13] MEDS ORDERED: Lidocaine/Prilocaine 2.5%-2.5% Cream(30 gm) TOP ONE (04:35)
[2018-09-13] MEDS ORDERED: Lidocaine 1% Inj (20ml) IJ STA (04:35)
--- NOTE | 2018-09-13 05:09 | CP.PCM.CON ---
History of Present Illness - History of Present Illness History of Present Illness: General Surgery Dr. Asher 58 y/o F w/ PMHx of HTN, DM2 presents to the ED c/o R thigh abscess, N/V. Pt reports abscess first appeared as small pimple on R inner thigh/groin area about 1wk [employer]. Pt states that it began to grow over the last couple of days. Pt reports using [facility] for hair removal. Pt saw her PCP earlier today who started pt on Amoxicillin. Pt reports taking 1 dose before developing N/V, diarrhea. Pt also states that her PCP instructed her to make an appointment w/ a surgeon to evaluate the wound. Pt reports coming to the ED for evaluation once the N/V and diarrhea began. Pt also reports subjective fever and sweating over last week. In the ED, pt underwent CTH for c/o dizziness which was negative for acute path ology. Lab work drawn in ED revealed WBC of 13. Surgery consulted for R thigh/groin abscess/cellulitis. Currently pt admits to diarrhea but denies F/C, N/V. PMHx: see above, bronchitis, obesity Meds: reviewed in chart ALL: codeine PSHx: tonsillectomy, kianna, c-secton, L breast lumpectomy SHx: denies tobacco, drug use. occasional EtOH FHx: noncontributory Review of Systems - Review of Systems All systems: reviewed and no additional remarkable complaints except (see HPI) Past Patient History - Infectious Disease Hx of Infectious Diseases: None - Past Social History Smoking Status: Never Smoked - CARDIAC Hx Hypertension: Yes - PULMONARY Hx Bronchitis: Yes - NEUROLOGICAL Hx Neurological Disorder: No - HEENT Hx HEENT Problems: Yes Other/Comment: TONSILLECTOMY - RENAL Hx Chronic Kidney Disease: No - ENDOCRINE/METABOLIC Hx Endocrine Disorders: Yes Hx Diabetes Mellitus Type 2: Yes - HEMATOLOGICAL/ONCOLOGICAL Hx Blood Disorders: No - INTEGUMENTARY Hx Dermatological Problems: Yes Other/Comment: SKIN INFECTION - MUSCULOSKELETAL/RHEUMATOLOGICAL Hx Falls: Yes - GASTROINTESTINAL Hx Gastrointestinal Disorders: Yes Hx Gall Bladder Disease: Yes (CHOLECYSTECTOMY) - GENITOURINARY/GYNECOLOGICAL Hx Genitourinary Disorders: Yes - PSYCHIATRIC Hx Psychophysiologic Disorder: No - SURGICAL HISTORY Hx Cholecystectomy: Yes Other/Comment: right breath lumpectomy- benign Meds Allergies/Adverse Reactions: Allergies Allergy/AdvReac Type Severity Reaction Status Date / Time codeine Allergy tachycardia Verified 09/12/18 18:35 - Medications Medications: Current Medications Acetaminophen (Tylenol 325mg Tab) 650 mg PO Q6H PRN PRN Reason: Pain, moderate (4-7) Al Hydrox/Mg Hydrox/Simethicone (Maalox Plus 30 Ml) 30 ml PO BID PRN PRN Reason: Heartburn Enoxaparin Sodium (Lovenox) 40 mg SC DAILY ELIANA; Protocol Sodium Chloride (Sodium Chloride 0.9%) 1,000 mls @ 100 mls/hr IV .Q10H ELIANA Vancomycin HCl (Vancomycin 1gm) 1 gm in 250 mls @ 167 mls/hr IVPB Q12H ELIANA; Protocol Piperacillin Sod/Tazobactam Sod (Zosyn 3.375 In Ns 100ml) 100 mls @ 25 mls/hr IVPB Q12 ELIANA; Protocol Stop: 09/13/18 13:59 Insulin Human Lispro (Humalog Med) 0 units SC ACHS ELIANA; Protocol Lisinopril (Zestril) 10 mg PO DAILY ELIANA Loperamide HCl (Imodium) 2 mg PO QID PRN PRN Reason: Diarrhea Ondansetron HCl (Zofran Inj) 4 mg IVP Q4H PRN PRN Reason: Nausea/Vomiting Pantoprazole Sodium (Protonix Inj) 40 mg IVP DAILY ELIANA Physical Exam - Constitutional Appears: Non-toxic, No Acute Distress - Head Exam Head Exam: NORMAL INSPECTION - Eye Exam Eye Exam: Normal appearance - ENT Exam ENT Exam: Mucous Membranes Moist - Respiratory Exam Respiratory Exam: NORMAL BREATHING PATTERN. absent: Accessory Muscle Use, Respiratory Distress - Cardiovascular Exam Cardiovascular Exam: REGULAR RHYTHM. absent: Bradycardia, Tachycardia - GI/Abdominal Exam GI & Abdominal Exam: Soft. absent: Distended, Tenderness - Exam Additional comments: R groin 2cm area of fluctuance w/ 3-4cm surrounding induration. no drainage noted L mons/labia majora 1cm area of induration. no fluctuance. - Extremities Exam Extremities exam: Positive for: normal inspection - Neurological Exam Neurological exam: Alert, Oriented x3 - Psychiatric Exam Psychiatric exam: Normal Affect, Normal Mood - Skin Skin Exam: Dry, Intact, Normal Color, Warm Results - Vital Signs Recent Vital Signs: Last Vital Signs Temp 98.1 F 09/12/18 23:40 Pulse 85 09/12/18 23:40 Resp 18 09/13/18 02:08 BP 150/82 09/12/18 23:40 Pulse Ox 100 09/12/18 23:40 - Labs Result Diagrams: 09/12/18 19:52 09/12/18 19:52 Labs: Laboratory Results - last 24 hr 09/12/18 09/12/18 09/12/18 19:52 19:52 19:52 WBC 13.1 H RBC 4.17 Hgb 12.4 Hct 37.5 MCV 89.9 MCH 29.7 MCHC 33.1 RDW 13.2 Plt Count 324 MPV 9.3 PT 12.2 INR 1.07 APTT 27.5 Sodium 143 Potassium 4.6 Chloride 103 Carbon Dioxide 24 Anion Gap 21 H BUN 16 Creatinine 1.2 Est GFR ( Amer) 56 Est GFR (Non-Af Amer) 46 Random Glucose 169 H Calcium 9.8 Total Bilirubin 0.7 AST 35 ALT 28 Alkaline Phosphatase 76 Lactate Dehydrogenase 557 Total Creatine Kinase 286 H CK-MB (CK-2) 2.5 CK-MB (CK-2) % Cancelled Troponin I < 0.01 Total Protein 8.6 H Albumin 4.7 Globulin 3.9 Albumin/Globulin Ratio 1.2 Lipase 57 - Imaging and Cardiology CT scan - head Status: Report reviewed by me Assessment & Plan - Assessment and Plan (Free Text) Assessment: 58 y/o F w/ R groin abscess Plan: - bedside I&D, consent obtained in chart - cont IV Abx - cont pain management - dressing change PRN - f/u ID recs - f/u wound Cx - encourage OOB to chair/Amb Pt discussed w/ Dr. Lb Appiah DO PGY3 Incision and Drainage - Time Time Performed: 05:00 - Time Out Time Out: Side verified, Site verified, Patient ID confirmed, Sterile procedures obs. - Consent obtained Consent obtained: Written - Performed by Performed by: Mid-level Provider - Indications Indications: Cutaneous abscess - Contraindications Contraindications: None - Location Location: Right, Inguina/Groin - Dimensions Dimensions Length cm: 2 Dimensions width cm: 2 - Anesthetic Technique Anesthetic Technique: Topical, Local - Anesthetic Anesthetic: Lidocaine 1%, EMLA - Procedure Procedure: Usual prep and drape, cm incision (1), Overlying area fluctuance, # scalpel used (11), Explored for loculations, Packed with sterile gauze - Post-procedure Post procedure: Dressed - Complications Complications: None - Patient tolerated procedure Patient tolerated procedure: Well
[2018-09-13 06:32] LABS: PH,URINE 5.5 (4.7-8.0); URINE BILIRUBIN NEGATIVE (NEGATIVE); URINE BLOOD NEGATIVE (NEGATIVE); URINE GLUCOSE (UA) NEGATIVE (NEGATIVE); URINE LEUKOCYTE ESTERASE NEGATIVE Leu/uL (NEGATIVE); URINE PROTEIN NEGATIVE mg/dL (<30 mg/dL); URINE UROBILINOGEN 0.2 E.U./dL (<1 E.U./dL)
[2018-09-13 07:06] LABS: URINE APPEARANCE SL CLOUDY (CLEAR); URINE COLOR YELLOW (YELLOW)
[2018-09-13 07:31] LABS: BASO # 0.02 K/mm3 (0.0-2.0); BASO % 0.2 % (0.0-3.0); EOS # 0.1 (0.0-0.7); EOS % 0.7 % (1.5-5.0); GRAN # 6.21 (1.4-6.5); GRAN % 76.4 % (50.0-68.0); HEMOGLOBIN 10.8 g/dL (12.0-16.0); LYMPH # 1.5 (1.2-3.4); LYMPH % 17.8 % (22.0-35.0); MEAN CELL VOLUME 89.9 fl (80.0-105.0); MEAN CORPUSCULAR HEMOGLOBIN 28.8 pg (25.0-35.0); MEAN PLATELET VOLUME 8.8 fl (7.0-11.0); MONO # 0.4 (0.1-0.6); MONO % 4.9 % (1.0-6.0); RBC 3.75 10^6/uL (3.5-6.1); RED CELL DISTRIBUTION WIDTH 13.2 % (11.5-14.5); WHITE BLOOD COUNT 8.1 10^3/uL (4.5-11.0)
[2018-09-13 07:34] LABS: ALB/GLOB RATIO 1.1 (1.1-1.8); ALBUMIN 3.7 g/dL (3.0-4.8); CALCIUM 8.6 mg/dL (8.4-10.5)
--- NOTE | 2018-09-13 08:04 | CP.PCM.PN ---
<James Lucas - Last Filed: 09/13/18 17:57> Subjective - Date & Time of Evaluation Date of Evaluation: 09/13/18 Time of Evaluation: 08:03 - Subjective Subjective: PGY-1 Medicine Progress Note for Dr. Chaney Patient seen and examined at bedside this AM s/p bedside I&D of R groin abscess by surgical team. No acute overnight events reported. Continues to endorse tenderness along surgical site, nausea and diarrhea but no vomiting. Denies fevers/chills, headaches, dizziness, chest pain, palpitations, sob, cough. Objective - Vital Signs/Intake and Output Vital Signs (last 24 hours): Temp Pulse Resp BP Pulse Ox 98.1 F 85 18 150/82 100 09/12/18 23:40 09/12/18 23:40 09/13/18 02:08 09/12/18 23:40 09/12/18 23:40 Intake and Output: 09/13/18 09/13/18 06:59 18:59 Intake Total 120 Balance 120 - Medications Medications: Current Medications Acetaminophen (Tylenol 325mg Tab) 650 mg PO Q6H PRN PRN Reason: Pain, moderate (4-7) Al Hydrox/Mg Hydrox/Simethicone (Maalox Plus 30 Ml) 30 ml PO BID PRN PRN Reason: Heartburn Sodium Chloride (Sodium Chloride 0.9%) 1,000 mls @ 100 mls/hr IV .Q10H [facility]IANA Piperacillin Sod/Tazobactam Sod (Zosyn 3.375 In Ns 100ml) 100 mls @ 25 mls/hr IVPB Q12 ELIANA; Protocol Stop: 09/13/18 13:59 Linezolid (Zyvox 600mg/300ml D5w) 600 mg in 300 mls @ 200 mls/hr IVPB Q12 ELIANA; Protocol Stop: 09/20/18 10:01 Insulin Human Lispro (Humalog Med) 0 units SC ACHS ELIANA; Protocol Lisinopril (Zestril) 10 mg PO DAILY ELIANA Loperamide HCl (Imodium) 2 mg PO QID PRN PRN Reason: Diarrhea Ondansetron HCl (Zofran Inj) 4 mg IVP Q4H PRN PRN Reason: Nausea/Vomiting Pantoprazole Sodium (Protonix Inj) 40 mg IVP DAILY ELIANA - Labs Labs: 09/13/18 07:00 09/13/18 07:00 PT 12.2 SECONDS (9.4-12.5) 09/12/18 19:52 INR 1.07 09/12/18 19:52 APTT 27.5 Seconds (25.1-36.5) 09/12/18 19:52 - Constitutional Appears: Non-toxic, No Acute Distress - Head Exam Head Exam: ATRAUMATIC, NORMAL INSPECTION, NORMOCEPHALIC - Eye Exam Eye Exam: EOMI, Normal appearance Pupil Exam: NORMAL ACCOMODATION - ENT Exam ENT Exam: Mucous Membranes Moist, Normal Exam - Neck Exam Neck Exam: Full ROM, Normal Inspection - Respiratory Exam Respiratory Exam: Clear to Ausculation Bilateral, NORMAL BREATHING PATTERN. absent: Accessory Muscle Use, Rales, Rhonchi, Wheezes, Respiratory Distress, Stridor - Cardiovascular Exam Cardiovascular Exam: REGULAR RHYTHM, +S1, +S2 - GI/Abdominal Exam GI & Abdominal Exam: Soft, Normal Bowel Sounds. absent: Distended, Firm, Guarding, Rigid, Tenderness, Organomegaly - Extremities Exam Extremities Exam: Full ROM, Normal Capillary Refill. absent: Calf Tenderness, Joint Swelling, Pedal Edema Additional comments: R groin area- dressing in place- clean and dry mild erythema - Back Exam Back Exam: NORMAL INSPECTION - Neurological Exam Neurological Exam: Alert, Awake, Oriented x3 - Psychiatric Exam Psychiatric exam: Normal Affect, Normal Mood - Skin Skin Exam: Dry, Intact, Normal Color, Warm Assessment and Plan - Assessment and Plan (Free Text) Assessment: 58 yo F with PMH of DM2 and HTN is admitted for management of intractable nausea/vomiting and R thigh abscess Plan: R medial thigh abscess -s/p bedside I&D, dressing in place clean/dry/intact -f/u BCx -Surgery (Dr. Altamirano) following -ID (Dr. Elliott) recs appreciated -zyvox/zosyn for RLE skin and skin structure infection with abscess - f/u wound culture Intractable nausea/vomiting -May be 2/2 recent antibiotic use although patient has not had a reaction to augmentin in the past -May also be 2/2 worsening skin/soft tissue infection on the R medial thigh -Zofran 4 mg IVP q4h PRN for nausea/vomiting -Daily IV protonix until tolerating PO -Clear liquid diet, advance as tolerated -Fluid supplementation with NS at 100 cc/hr -Loperamide PRN for diarrhea Hx DM2 -Hold home diabetes medicines -ISS with point of care fingerstick glucose ACHS while admitted -A1c 6.4 -lipid panel wnl Hx HTN -Continue home lisinopril PPx, Diet, Disposition -DVT: lovenox -GI: protonix -Full code -Diet: clear liquid, advance as tolerated -PT on board Case discussed with Dr. Shiv Lucas DO, PGY-1 <Aurea Chaney - Last Filed: 09/13/18 19:06> Objective - Vital Signs/Intake and Output Vital Signs (last 24 hours): Temp Pulse Resp BP Pulse Ox 98.3 F 62 20 120/73 97 09/13/18 14:00 09/13/18 14:00 09/13/18 14:00 09/13/18 14:00 09/13/18 14:00 - Medications Medications: Current Medications Acetaminophen (Tylenol 325mg Tab) 650 mg PO Q6H PRN PRN Reason: Pain, moderate (4-7) Al Hydrox/Mg Hydrox/Simethicone (Maalox Plus 30 Ml) 30 ml PO BID PRN PRN Reason: Heartburn Atorvastatin Calcium (Lipitor) 10 mg PO DIN ELIANA Famotidine (Pepcid) 20 mg PO HS ELIANA Sodium Chloride (Sodium Chloride 0.9%) 1,000 mls @ 100 mls/hr IV .Q10H [facility]NA Last Admin: 09/13/18 09:40 Dose: 100 mls/hr Linezolid (Zyvox 600mg/300ml D5w) 600 mg in 300 mls @ 200 mls/hr IVPB Q12 [facility]NA; Protocol Stop: 09/20/18 10:01 Last Admin: 09/13/18 09:38 Dose: 200 mls/hr Insulin Human Lispro (Humalog Med) 0 units SC ACHS ELIANA; Protocol Last Admin: 09/13/18 09:39 Dose: Not Given Lisinopril (Zestril) 10 mg PO DAILY [facility] Last Admin: 09/13/18 09:38 Dose: 10 mg Loperamide HCl (Imodium) 2 mg PO QID PRN PRN Reason: Diarrhea Ondansetron HCl (Zofran Inj) 4 mg IVP Q4H PRN PRN Reason: Nausea/Vomiting - Labs Labs: 09/13/18 07:00 09/13/18 07:00 PT 12.2 SECONDS (9.4-12.5) 09/12/18 19:52 INR 1.07 09/12/18 19:52 APTT 27.5 Seconds (25.1-36.5) 09/12/18 19:52 Attending/Attestation - Attestation I have personally seen and examined this patient.: Yes I have fully participated in the care of the patient.: Yes I have reviewed all pertinent clinical information, including history, physical exam and plan: Yes Notes (Text): 09/13/18 19:03 58 year old female with past medical history of diabetes and hypertension who presented with right thigh abscess. S/p bedside I&D, currently on iv antibiotics while awaiting cultures. ID and surgery are following. She also complained on nausea, vomiting and stomach upset possible secondary to recent antibiotics or gastroenteritis. Symptoms improved. Continue with diet as tolerated. She complains of chronic left leg weakness and falls. CT head was negative. PT evaluation is requested. Aurea Chaney MD Hospitalist.
[2018-09-13] MEDS ORDERED: Vancomycin 1gm in NS 250ml 1 GM/250 ML BAG IVPB SCH (09:00)
--- NOTE | 2018-09-13 09:14 | CT ---
Date of service: 09/12/2018 PROCEDURE: CT HEAD WITHOUT CONTRAST. HISTORY: dizzy COMPARISON: 03/17/2018 TECHNIQUE: Axial computed tomography images were obtained through the head/brain without intravenous contrast. Radiation dose: Total exam DLP = 897.93 mGy-cm. This CT exam was performed using one or more of the following dose reduction techniques: Automated exposure control, adjustment of the mA and/or kV according to patient size, and/or use of iterative reconstruction technique. FINDINGS: HEMORRHAGE: No intracranial hemorrhage. BRAIN: No mass effect or edema. No atrophy or chronic microvascular ischemic changes. VENTRICLES: Unremarkable. No hydrocephalus. CALVARIUM: Unremarkable. PARANASAL SINUSES: Mucosal thickening left maxillary sinus MASTOID AIR CELLS: Unremarkable as visualized. No inflammatory changes. OTHER FINDINGS: The report concurs with the preliminary [facility] report IMPRESSION: No acute intracranial abnormality
[2018-09-13] MEDS: Linezolid 600 mg in D5W 300 ml 600 MG/300 ML BAG IVPB SCH ×2 (09:38→22:09)
[2018-09-13] MEDS: Insulin Lispro (humaLOG) MEDIUM Coverage SC SCH (09:39)
[2018-09-13] MEDS ORDERED: Enoxaparin 40 mg Syringe SC SCH (10:00)
[2018-09-13] MEDS ORDERED: Piperacillin/Tazobact 3.375 gm 100 ML IVPB SCH (10:00)
--- NOTE | 2018-09-13 10:09 | CARD ---
APPROVED REPORT Date of service: 09/12/2018 EKG Measurement Heart [id number] <Conclusion> Normal sinus rhythm Left Anterior Mandeep-Block. Non Specific ST_T Changes.
--- NOTE | 2018-09-13 10:27 | CP.PCM.CON ---
<Zoey Zendejas - Last Filed: 09/13/18 11:40> History of Present Illness - History of Present Illness History of Present Illness: Infectious Disease Consult Note for Patricia Jack PGY3 This is a 58yo female with PMH of HTN, DM who came to ED for nausea/vomiting and swelling in R groin. Patient reports she uses [facility] for hair removal and noticed a red bump in that area one week ago. It started to get larger and more red without any drainage. She went to her PMD and he gave her Amoxicillin. She took one dose and started having nausea with non-bilious/non-bloody vomiting. She de nies fever/chill, chest pain, shortness of breath, diarrhea, numbness/tingling, dysuria/hematuria or recent sexual activity. Past medical history: DM-II, HTN Past surgical history: cholecystectomy, tonsillectomy, Home meds: Reviewed Allergies: Codeine Social history: Drinks EtOH occasionally (but has been in ED x 2 for alcohol intoxication), denies drug or tobacco use. Family history: Dad- of lung Ca in 80s. Mom- ESRD, DM Review of Systems - Review of Systems All systems: reviewed and no additional remarkable complaints except Review of Systems: 12 point ROS reviewed as per HPI and is otherwise negative. Past Patient History - Infectious Disease Hx of Infectious Diseases: None - Past Social History Smoking Status: Never Smoked - CARDIAC Hx Hypertension: Yes - PULMONARY Hx Bronchitis: Yes - NEUROLOGICAL Hx Neurological Disorder: No - HEENT Hx HEENT Problems: Yes Other/Comment: TONSILLECTOMY - RENAL Hx Chronic Kidney Disease: No - ENDOCRINE/METABOLIC Hx Endocrine Disorders: Yes Hx Diabetes Mellitus Type 2: Yes - HEMATOLOGICAL/ONCOLOGICAL Hx Blood Disorders: No - INTEGUMENTARY Hx Dermatological Problems: Yes Other/Comment: SKIN INFECTION - MUSCULOSKELETAL/RHEUMATOLOGICAL Hx Falls: Yes - GASTROINTESTINAL Hx Gastrointestinal Disorders: Yes Hx Gall Bladder Disease: Yes (CHOLECYSTECTOMY) - GENITOURINARY/GYNECOLOGICAL Hx Genitourinary Disorders: Yes - PSYCHIATRIC Hx Psychophysiologic Disorder: No - SURGICAL HISTORY Hx Cholecystectomy: Yes Other/Comment: right breath lumpectomy- benign Meds Allergies/Adverse Reactions: Allergies Allergy/AdvReac Type Severity Reaction Status Date / Time codeine Allergy tachycardia Verified 09/12/18 18:35 - Medications Medications: Current Medications Acetaminophen (Tylenol 325mg Tab) 650 mg PO Q6H PRN PRN Reason: Pain, moderate (4-7) Al Hydrox/Mg Hydrox/Simethicone (Maalox Plus 30 Ml) 30 ml PO BID PRN PRN Reason: Heartburn Atorvastatin Calcium (Lipitor) 10 mg PO DIN [facility]NA Famotidine (Pepcid) 20 mg PO HS [facility]NA Sodium Chloride (Sodium Chloride 0.9%) 1,000 mls @ 100 mls/hr IV .Q10H [facility]NA Last Admin: 09/13/18 09:40 Dose: 100 mls/hr Piperacillin Sod/Tazobactam Sod (Zosyn 3.375 In Ns 100ml) 100 mls @ 25 mls/hr IVPB Q12 ELIANA; Protocol Stop: 09/13/18 13:59 Last Admin: 09/13/18 09:38 Dose: 25 mls/hr Linezolid (Zyvox 600mg/300ml D5w) 600 mg in 300 mls @ 200 mls/hr IVPB Q12 ELIANA; Protocol Stop: 09/20/18 10:01 Last Admin: 09/13/18 09:38 Dose: 200 mls/hr Insulin Human Lispro (Humalog Med) 0 units SC ACHS ELIANA; Protocol Last Admin: 09/13/18 09:39 Dose: Not Given Lisinopril (Zestril) 10 mg PO DAILY [facility] Last Admin: 09/13/18 09:38 Dose: 10 mg Loperamide HCl (Imodium) 2 mg PO QID PRN PRN Reason: Diarrhea Ondansetron HCl (Zofran Inj) 4 mg IVP Q4H PRN PRN Reason: Nausea/Vomiting Physical Exam - Constitutional Appears: No Acute Distress - Head Exam Head Exam: ATRAUMATIC, NORMAL INSPECTION, NORMOCEPHALIC - Eye Exam Eye Exam: Normal appearance, PERRL Pupil Exam: NORMAL ACCOMODATION, PERRL - ENT Exam ENT Exam: Mucous Membranes Moist - Respiratory Exam Respiratory Exam: Clear to Auscultation Bilateral, NORMAL BREATHING PATTERN. ab sent: Rales, Rhonchi, Wheezes, Stridor - Cardiovascular Exam Cardiovascular Exam: REGULAR RHYTHM, +S1, +S2. absent: Gallop, Rubs, Systolic Murmur - GI/Abdominal Exam GI & Abdominal Exam: Normal Bowel Sounds, Soft. absent: Guarding, Mass, Rebound, Rigid, Tenderness - Exam Additional comments: R groin area- dressing in place- clean and dry mild erythema - Extremities Exam Extremities exam: Positive for: normal inspection. Negative for: calf tenderness, pedal edema - Neurological Exam Neurological exam: Alert, CN II-XII Intact, Oriented x3 - Psychiatric Exam Psychiatric exam: Normal Affect, Normal Mood - Skin Skin Exam: Dry, Warm Results - Vital Signs Recent Vital Signs: Last Vital Signs Temp 98.4 F 09/13/18 07:00 Pulse 64 09/13/18 07:00 Resp 20 09/13/18 07:00 BP 117/73 09/13/18 07:00 Pulse Ox 99 09/13/18 07:00 - Labs Result Diagrams: 09/13/18 07:00 09/13/18 07:00 Labs: Laboratory Results - last 24 hr 09/12/18 09/12/18 09/12/18 19:51 19:52 19:52 WBC RBC Hgb Hct MCV MCH MCHC RDW Plt Count MPV Gran % Lymph % (Auto) [place] % (Auto) Eos % (Auto) Baso % (Auto) Gran # Lymph # (Auto) [place] # (Auto) Eos # (Auto) Baso # (Auto) PT 12.2 INR 1.07 APTT 27.5 Sodium 143 Potassium 4.6 Chloride 103 Carbon Dioxide 24 Anion Gap 21 H BUN 16 Creatinine 1.2 Est GFR ( Amer) 56 Est GFR (Non-Af Amer) 46 POC Glucose (mg/dL) 157 H Random Glucose 169 H Calcium 9.8 Phosphorus Magnesium Total Bilirubin 0.7 AST 35 ALT 28 Alkaline Phosphatase 76 Lactate Dehydrogenase 557 Total Creatine Kinase 286 H CK-MB (CK-2) 2.5 CK-MB (CK-2) % Cancelled Troponin I < 0.01 Total Protein 8.6 H Albumin 4.7 Globulin 3.9 Albumin/Globulin Ratio 1.2 Triglycerides Cholesterol LDL Cholesterol Direct HDL Cholesterol Lipase 57 Urine Color Urine Appearance Urine pH Ur Specific [place] Urine Protein Urine Glucose (UA) Urine Ketones Urine Blood Urine Nitrate Urine Bilirubin Urine Urobilinogen Ur Leukocyte Esterase 09/12/18 09/13/18 09/13/18 19:52 05:25 06:39 WBC 13.1 H RBC 4.17 Hgb 12.4 Hct 37.5 MCV 89.9 MCH 29.7 MCHC 33.1 RDW 13.2 Plt Count 324 MPV 9.3 Gran % Lymph % (Auto) [place] % (Auto) Eos % (Auto) Baso % (Auto) Gran # Lymph # (Auto) [place] # (Auto) Eos # (Auto) Baso # (Auto) PT INR APTT Sodium Potassium Chloride Carbon Dioxide Anion Gap BUN Creatinine Est GFR ( Amer) Est GFR (Non-Af Amer) POC Glucose (mg/dL) 101 Random Glucose Calcium Phosphorus Magnesium Total Bilirubin AST ALT Alkaline Phosphatase Lactate Dehydrogenase Total Creatine Kinase CK-MB (CK-2) CK-MB (CK-2) % Troponin I Total Protein Albumin Globulin Albumin/Globulin Ratio Triglycerides Cholesterol LDL Cholesterol Direct HDL Cholesterol Lipase Urine Color Yellow Urine Appearance Sl cloudy Urine pH 5.5 Ur Specific [place] 1.025 Urine Protein Negative Urine Glucose (UA) Negative Urine Ketones 15 H Urine Blood Negative Urine Nitrate Negative Urine Bilirubin Negative Urine Urobilinogen 0.2 Ur Leukocyte Esterase Negative 09/13/18 09/13/18 07:00 07:00 WBC 8.1 D RBC 3.75 Hgb 10.8 L Hct 33.7 L MCV 89.9 MCH 28.8 MCHC 32.0 RDW 13.2 Plt Count 307 MPV 8.8 Gran % 76.4 H Lymph % (Auto) 17.8 L [place] % (Auto) 4.9 Eos % (Auto) 0.7 L Baso % (Auto) 0.2 Gran # 6.21 Lymph # (Auto) 1.5 [place] # (Auto) 0.4 Eos # (Auto) 0.1 Baso # (Auto) 0.02 PT INR APTT Sodium 142 Potassium 4.2 Chloride 108 H Carbon Dioxide 28 Anion Gap 11 BUN 15 Creatinine 1.3 H Est GFR ( Amer) 51 Est GFR (Non-Af Amer) 42 POC Glucose (mg/dL) Random Glucose 103 Calcium 8.6 Phosphorus 4.1 Magnesium 2.0 Total Bilirubin 0.6 AST 30 ALT 24 Alkaline Phosphatase 54 Lactate Dehydrogenase Total Creatine Kinase CK-MB (CK-2) CK-MB (CK-2) % Troponin I Total Protein 7.0 Albumin 3.7 Globulin 3.3 Albumin/Globulin Ratio 1.1 Triglycerides 76 Cholesterol 135 LDL Cholesterol Direct 79 HDL Cholesterol 38 Lipase Urine Color Urine Appearance Urine pH Ur Specific [place] Urine Protein Urine Glucose (UA) Urine Ketones Urine Blood Urine Nitrate Urine Bilirubin Urine Urobilinogen Ur Leukocyte Esterase Assessment & Plan - Assessment and Plan (Free Text) Assessment: 1. R groin abscess 2. HTN 3. DMII 4. CKD stage IIIA Plan: Patient had I&D as per surgery. Cultures sent and awaiting results. Will d/c Zosyn and continue Zyvox. Will continue to monitor patient clinically. Will make further recommendations when cultures have resulted. Case seen, discussed and reviewed with Dr. Lexi Zendejas PGY3 <Selvin Elliott - Last Filed: 09/13/18 12:55> Meds - Medications Medications: Current Medications Acetaminophen (Tylenol 325mg Tab) 650 mg PO Q6H PRN PRN Reason: Pain, moderate (4-7) Al Hydrox/Mg Hydrox/Simethicone (Maalox Plus 30 Ml) 30 ml PO BID PRN PRN Reason: Heartburn Atorvastatin Calcium (Lipitor) 10 mg PO DIN ELIANA Famotidine (Pepcid) 20 mg PO HS [facility]IANA Sodium Chloride (Sodium Chloride 0.9%) 1,000 mls @ 100 mls/hr IV .Q10H [facility]IANA Last Admin: 09/13/18 09:40 Dose: 100 mls/hr Linezolid (Zyvox 600mg/300ml D5w) 600 mg in 300 mls @ 200 mls/hr IVPB Q12 ELIANA; Protocol Stop: 09/20/18 10:01 Last Admin: 09/13/18 09:38 Dose: 200 mls/hr Insulin Human Lispro (Humalog Med) 0 units SC ACHS [facility]; Protocol Last Admin: 09/13/18 09:39 Dose: Not Given Lisinopril (Zestril) 10 mg PO DAILY [facility] Last Admin: 09/13/18 09:38 Dose: 10 mg Loperamide HCl (Imodium) 2 mg PO QID PRN PRN Reason: Diarrhea Ondansetron HCl (Zofran Inj) 4 mg IVP Q4H PRN PRN Reason: Nausea/Vomiting Results - Vital Signs Recent Vital Signs: Last Vital Signs Temp 98.4 F 09/13/18 07:00 Pulse 64 09/13/18 07:00 Resp 20 09/13/18 07:00 BP 117/73 09/13/18 07:00 Pulse Ox 99 09/13/18 07:00 - Labs Result Diagrams: 09/13/18 07:00 09/13/18 07:00 Labs: Laboratory Results - last 24 hr 09/12/18 09/12/18 09/12/18 19:51 19:52 19:52 WBC RBC Hgb Hct MCV MCH MCHC RDW Plt Count MPV Gran % Lymph % (Auto) [place] % (Auto) Eos % (Auto) Baso % (Auto) Gran # Lymph # (Auto) [place] # (Auto) Eos # (Auto) Baso # (Auto) PT 12.2 INR 1.07 APTT 27.5 Sodium 143 Potassium 4.6 Chloride 103 Carbon Dioxide 24 Anion Gap 21 H BUN 16 Creatinine 1.2 Est GFR ( Amer) 56 Est GFR (Non-Af Amer) 46 POC Glucose (mg/dL) 157 H Random Glucose 169 H Calcium 9.8 Phosphorus Magnesium Total Bilirubin 0.7 AST 35 ALT 28 Alkaline Phosphatase 76 Lactate Dehydrogenase 557 Total Creatine Kinase 286 H CK-MB (CK-2) 2.5 CK-MB (CK-2) % Cancelled Troponin I < 0.01 Total Protein 8.6 H Albumin 4.7 Globulin 3.9 Albumin/Globulin Ratio 1.2 Triglycerides Cholesterol LDL Cholesterol Direct HDL Cholesterol Lipase 57 Urine Color Urine Appearance Urine pH Ur Specific [place] Urine Protein Urine Glucose (UA) Urine Ketones Urine Blood Urine Nitrate Urine Bilirubin Urine Urobilinogen Ur Leukocyte Esterase 09/12/18 09/13/18 09/13/18 19:52 05:25 06:39 WBC 13.1 H RBC 4.17 Hgb 12.4 Hct 37.5 MCV 89.9 MCH 29.7 MCHC 33.1 RDW 13.2 Plt Count 324 MPV 9.3 Gran % Lymph % (Auto) [place] % (Auto) Eos % (Auto) Baso % (Auto) Gran # Lymph # (Auto) [place] # (Auto) Eos # (Auto) Baso # (Auto) PT INR APTT Sodium Potassium Chloride Carbon Dioxide Anion Gap BUN Creatinine Est GFR ( Amer) Est GFR (Non-Af Amer) POC Glucose (mg/dL) 101 Random Glucose Calcium Phosphorus Magnesium Total Bilirubin AST ALT Alkaline Phosphatase Lactate Dehydrogenase Total Creatine Kinase CK-MB (CK-2) CK-MB (CK-2) % Troponin I Total Protein Albumin Globulin Albumin/Globulin Ratio Triglycerides Cholesterol LDL Cholesterol Direct HDL Cholesterol Lipase Urine Color Yellow Urine Appearance Sl cloudy Urine pH 5.5 Ur Specific [place] 1.025 Urine Protein Negative Urine Glucose (UA) Negative Urine Ketones 15 H Urine Blood Negative Urine Nitrate Negative Urine Bilirubin Negative Urine Urobilinogen 0.2 Ur Leukocyte Esterase Negative 09/13/18 09/13/18 09/13/18 07:00 07:00 11:34 WBC 8.1 D RBC 3.75 Hgb 10.8 L Hct 33.7 L MCV 89.9 MCH 28.8 MCHC 32.0 RDW 13.2 Plt Count 307 MPV 8.8 Gran % 76.4 H Lymph % (Auto) 17.8 L [place] % (Auto) 4.9 Eos % (Auto) 0.7 L Baso % (Auto) 0.2 Gran # 6.21 Lymph # (Auto) 1.5 [place] # (Auto) 0.4 Eos # (Auto) 0.1 Baso # (Auto) 0.02 PT INR APTT Sodium 142 Potassium 4.2 Chloride 108 H Carbon Dioxide 28 Anion Gap 11 BUN 15 Creatinine 1.3 H Est GFR ( Amer) 51 Est GFR (Non-Af Amer) 42 POC Glucose (mg/dL) 59 L Random Glucose 103 Calcium 8.6 Phosphorus 4.1 Magnesium 2.0 Total Bilirubin 0.6 AST 30 ALT 24 Alkaline Phosphatase 54 Lactate Dehydrogenase Total Creatine Kinase CK-MB (CK-2) CK-MB (CK-2) % Troponin I Total Protein 7.0 Albumin 3.7 Globulin 3.3 Albumin/Globulin Ratio 1.1 Triglycerides 76 Cholesterol 135 LDL Cholesterol Direct 79 HDL Cholesterol 38 Lipase Urine Color Urine Appearance Urine pH Ur Specific [place] Urine Protein Urine Glucose (UA) Urine Ketones Urine Blood Urine Nitrate Urine Bilirubin Urine Urobilinogen Ur Leukocyte Esterase Assessment & Plan - Assessment and Plan (Free Text) Plan: Infectious Diseases Attending Physician Attestation Patient seen and examined, discussed with medical clerk. I have reviewed the patient's history of present illness, past medical, family and social histories, personal history, physical exam, lab findings and imaging studies. I agree with the above findings, assessment and plan. In addition, we have started the patient on Zyvox for right lower extremity skin and skin structure infection with abscess. Follow up abscess culture results. Will get HIV test.
--- NOTE | 2018-09-13 12:01 | RAD ---
Date of service: 09/12/2018 HISTORY: Vomiting. COMPARISON: 03/17/2018. FINDINGS: LUNGS: No active pulmonary disease. PLEURA: No significant pleural effusion identified, no pneumothorax apparent. CARDIOVASCULAR: No atherosclerotic calcification present Normal. OSSEOUS STRUCTURES: No significant abnormalities. VISUALIZED UPPER ABDOMEN: Normal. OTHER FINDINGS: None. IMPRESSION: No active disease. No significant interval change compared to the prior examination(s).
[2018-09-14 07:59] LABS: BASO # 0.02 K/mm3 (0.0-2.0); BASO % 0.3 % (0.0-3.0); EOS # 0.2 (0.0-0.7); EOS % 2.7 % (1.5-5.0); GRAN # 3.77 (1.4-6.5); GRAN % 51.8 % (50.0-68.0); HEMOGLOBIN 10.5 g/dL (12.0-16.0); LYMPH # 2.9 (1.2-3.4); LYMPH % 39.9 % (22.0-35.0); MEAN CELL VOLUME 90.7 fl (80.0-105.0); MEAN CORPUSCULAR HEMOGLOBIN 28.8 pg (25.0-35.0); MEAN CORPUSCULAR HGB CONC 31.8 g/dl (31.0-37.0); MONO # 0.4 (0.1-0.6); MONO % 5.3 % (1.0-6.0); RBC 3.64 10^6/uL (3.5-6.1); RED CELL DISTRIBUTION WIDTH 13.2 % (11.5-14.5); WHITE BLOOD COUNT 7.3 10^3/uL (4.5-11.0)
[2018-09-14 08:16] LABS: ALB/GLOB RATIO 1.1 (1.1-1.8); ALBUMIN 3.4 g/dL (3.0-4.8); CALCIUM 8.9 mg/dL (8.4-10.5)
--- NOTE | 2018-09-14 09:09 | CP.PCM.PN ---
Subjective - Date & Time of Evaluation Date of Evaluation: 09/14/18 Time of Evaluation: 09:06 - Subjective Subjective: General Surgery Progress Note for Dr. Asher 58F seen and evaluated at bedside this morning. No acute events overnight. No complaints this morning. Patient tolerating diet. Pain controlled. Denies f/c, n/v/d, SOB, CP, or urinary symptoms. Objective - Vital Signs/Intake and Output Vital Signs (last 24 hours): Temp Pulse Resp BP Pulse Ox 98.3 F 62 20 120/73 97 09/13/18 14:00 09/13/18 14:00 09/13/18 14:00 09/13/18 14:00 09/13/18 14:00 Intake and Output: 09/14/18 09/14/18 06:59 18:59 Intake Total 180 Balance 180 - Medications Medications: Current Medications Acetaminophen (Tylenol 325mg Tab) 650 mg PO Q6H PRN PRN Reason: Pain, moderate (4-7) Al Hydrox/Mg Hydrox/Simethicone (Maalox Plus 30 Ml) 30 ml PO BID PRN PRN Reason: Heartburn Atorvastatin Calcium (Lipitor) 10 mg PO DIN [facility] Famotidine (Pepcid) 20 mg PO HS [facility] Last Admin: 09/13/18 22:08 Dose: 20 mg Linezolid (Zyvox 600mg/300ml D5w) 600 mg in 300 mls @ 200 mls/hr IVPB Q12 [facility]; Protocol Stop: 09/20/18 10:01 Last Admin: 09/13/18 22:09 Dose: 200 mls/hr Insulin Human Lispro (Humalog Med) 0 units SC ACHS [facility]IA[facility]; Protocol Last Admin: 09/13/18 09:39 Dose: Not Given Lisinopril (Zestril) 10 mg PO DAILY [facility] Last Admin: 09/13/18 09:38 Dose: 10 mg Loperamide HCl (Imodium) 2 mg PO QID PRN PRN Reason: Diarrhea Ondansetron HCl (Zofran Inj) 4 mg IVP Q4H PRN PRN Reason: Nausea/Vomiting - Labs Labs: 09/14/18 07:00 09/14/18 07:00 PT 12.2 SECONDS (9.4-12.5) 09/12/18 19:52 INR 1.07 09/12/18 19:52 APTT 27.5 Seconds (25.1-36.5) 09/12/18 19:52 - Constitutional Appears: Well, Non-toxic, No Acute Distress - Head Exam Head Exam: ATRAUMATIC, NORMAL INSPECTION, NORMOCEPHALIC - Eye Exam Eye Exam: EOMI - ENT Exam ENT Exam: Mucous Membranes Moist - Respiratory Exam Respiratory Exam: NORMAL BREATHING PATTERN - Cardiovascular Exam Cardiovascular Exam: REGULAR RHYTHM - GI/Abdominal Exam GI & Abdominal Exam: Soft, Normal Bowel Sounds. absent: Tenderness - Neurological Exam Neurological Exam: Alert, Awake - Psychiatric Exam Psychiatric exam: Normal Affect, Normal Mood - Skin Skin Exam: Dry, Intact, Normal Color, Warm Additional comments: packing removed dressings applied, c/d/i Assessment and Plan - Assessment and Plan (Free Text) Assessment: 58F s/p I&D of right thigh abscess POD1 Plan: Packing removed Reapplied new dressings Pending cultures and antibiotic sensitivities Continue Abx per ID No further surgical intervention required at this time Patient to be discharged with PO antibiotics Further medical management per primary team D/w Dr. Lb Madison PGY1
[2018-09-14] MEDS: Insulin Lispro (humaLOG) MEDIUM Coverage SC SCH ×3 (10:12→17:00)
[2018-09-14] MEDS: Linezolid 600 mg in D5W 300 ml 600 MG/300 ML BAG IVPB SCH ×2 (10:17→22:05)
--- NOTE | 2018-09-14 14:09 | CP.PCM.PN ---
Subjective - Date & Time of Evaluation Date of Evaluation: 09/14/18 Time of Evaluation: 13:05 - Subjective Subjective: Comfortable in bed, much improved pain in the right lower extremity, no fevers. No nausea or diarrhea. Objective - Vital Signs/Intake and Output Vital Signs (last 24 hours): Temp Pulse Resp BP Pulse Ox 98.4 F 64 20 117/73 99 09/13/18 07:00 09/13/18 07:00 09/13/18 07:00 09/13/18 07:00 09/13/18 07:00 Intake and Output: 09/13/18 09/13/18 06:59 18:59 Intake Total 120 Balance 120 - Medications Medications: Current Medications Acetaminophen (Tylenol 325mg Tab) 650 mg PO Q6H PRN PRN Reason: Pain, moderate (4-7) Al Hydrox/Mg Hydrox/Simethicone (Maalox Plus 30 Ml) 30 ml PO BID PRN PRN Reason: Heartburn Atorvastatin Calcium (Lipitor) 10 mg PO DIN [facility] Famotidine (Pepcid) 20 mg PO HS [facility] Sodium Chloride (Sodium Chloride 0.9%) 1,000 mls @ 100 mls/hr IV .Q10H [facility] Last Admin: 09/13/18 09:40 Dose: 100 mls/hr Linezolid (Zyvox 600mg/300ml D5w) 600 mg in 300 mls @ 200 mls/hr IVPB Q12 [facility]; Protocol Stop: 09/20/18 10:01 Last Admin: 09/13/18 09:38 Dose: 200 mls/hr Insulin Human Lispro (Humalog Med) 0 units SC ACHS [facility]; Protocol Last Admin: 09/13/18 09:39 Dose: Not Given Lisinopril (Zestril) 10 mg PO DAILY [facility] Last Admin: 09/13/18 09:38 Dose: 10 mg Loperamide HCl (Imodium) 2 mg PO QID PRN PRN Reason: Diarrhea Ondansetron HCl (Zofran Inj) 4 mg IVP Q4H PRN PRN Reason: Nausea/Vomiting - Labs Labs: 09/13/18 07:00 09/13/18 07:00 PT 12.2 SECONDS (9.4-12.5) 09/12/18 19:52 INR 1.07 09/12/18 19:52 APTT 27.5 Seconds (25.1-36.5) 09/12/18 19:52 - Constitutional Appears: No Acute Distress, Chronically Ill - Head Exam Head Exam: NORMAL INSPECTION - Neck Exam Neck Exam: absent: Meningismus - Respiratory Exam Respiratory Exam: Decreased Breath Sounds - Cardiovascular Exam Cardiovascular Exam: +S1, +S2 - GI/Abdominal Exam GI & Abdominal Exam: Soft. absent: Tenderness Assessment and Plan - Assessment and Plan (Free Text) Plan: Assessment right lower extremity skin and skin structure infection with abscess HTN DM chronic renal failure Plan continue Zyvox day 2 pending final abscess culture results will continue to monitor clinically may need to have patient use antibacterial chlorhexidine soap for daily bathing
--- NOTE | 2018-09-14 18:21 | CP.PCM.PN ---
<Chris Branham - Last Filed: 09/14/18 18:30> Subjective - Date & Time of Evaluation Date of Evaluation: 09/14/18 Time of Evaluation: 07:00 - Subjective Subjective: Chris Branham, PGY1 Medicine Progress Note for Dr. Chaney Patient was seen and examined at bedside this morning. She complained of diarrhea 3-4 episodes. Patient's pain level s/p I&D of R groin abscess is tolerable. No fevers or leukocytosis. Denies cp ,abdominal pain, n/v. No adverse overnight events. A full 12 point ROS was conducted and unremarkable except as stated above. Objective - Vital Signs/Intake and Output Vital Signs (last 24 hours): Temp Pulse Resp BP Pulse Ox 98.3 F 91 H 20 165/81 H 100 09/14/18 06:00 09/14/18 16:30 09/14/18 06:00 09/14/18 17:10 09/14/18 06:00 Intake and Output: 09/14/18 09/14/18 06:59 18:59 Intake Total 180 Balance 180 - Medications Medications: Current Medications Acetaminophen (Tylenol 325mg Tab) 650 mg PO Q6H PRN PRN Reason: Pain, moderate (4-7) Al Hydrox/Mg Hydrox/Simethicone (Maalox Plus 30 Ml) 30 ml PO BID PRN PRN Reason: Heartburn Atorvastatin Calcium (Lipitor) 10 mg PO DIN [facility] Last Admin: 09/14/18 17:29 Dose: Not Given Famotidine (Pepcid) 20 mg PO HS [facility] Last Admin: 09/13/18 22:08 Dose: 20 mg Linezolid (Zyvox 600mg/300ml D5w) 600 mg in 300 mls @ 200 mls/hr IVPB Q12 [facility]; Protocol Stop: 09/20/18 10:01 Last Admin: 09/14/18 10:17 Dose: 200 mls/hr Insulin Human Lispro (Humalog Med) 0 units SC ACHS [facility]; Protocol Last Admin: 09/14/18 17:00 Dose: Not Given Lisinopril (Zestril) 10 mg PO DAILY [facility] Last Admin: 09/14/18 10:15 Dose: 10 mg Loperamide HCl (Imodium) 2 mg PO QID PRN PRN Reason: Diarrhea Ondansetron HCl (Zofran Inj) 4 mg IVP Q4H PRN PRN Reason: Nausea/Vomiting - Labs Labs: 09/14/18 07:00 09/14/18 07:00 PT 12.2 SECONDS (9.4-12.5) 09/12/18 19:52 INR 1.07 09/12/18 19:52 APTT 27.5 Seconds (25.1-36.5) 09/12/18 19:52 - Constitutional Appears: Well, No Acute Distress - Head Exam Head Exam: ATRAUMATIC, NORMAL INSPECTION, NORMOCEPHALIC - Eye Exam Eye Exam: EOMI, Normal appearance, PERRL - ENT Exam ENT Exam: Mucous Membranes Moist, Normal Exam - Neck Exam Neck Exam: Full ROM, Normal Inspection. absent: Lymphadenopathy - Respiratory Exam Respiratory Exam: Clear to Ausculation Bilateral, NORMAL BREATHING PATTERN. absent: Rales, Rhonchi, Wheezes - Cardiovascular Exam Cardiovascular Exam: REGULAR RHYTHM, +S1, +S2. absent: Murmur - GI/Abdominal Exam GI & Abdominal Exam: Soft, Normal Bowel Sounds. absent: Tenderness - Exam Additional comments: R- groin abscess. Dressing applied. No hematoma or pus. - Extremities Exam Extremities Exam: Full ROM, Normal Capillary Refill. absent: Joint Swelling, Pedal Edema - Neurological Exam Neurological Exam: Alert, Awake, Normal Gait, Oriented x3 - Psychiatric Exam Psychiatric exam: Normal Affect, Normal Mood - Skin Skin Exam: Dry, Intact, Normal Color, Warm Assessment and Plan - Assessment and Plan (Free Text) Assessment: 58 yo F with PMH of DM2 and HTN is admitted for management of intractable nausea/vomiting and R thigh abscess Plan: Right thigh Abscess - s/p I&D POD1 - c/w antibx - Patient is cleared by surgery - No complications from procedure - no fever or leukocytosis Intractable nausea/vomiting - improved -associated diarrhea, ordered c. diff -May be 2/2 recent antibiotic use -May also be 2/2 skin/soft tissue infection on the R medial thigh -c/w Zofran 4 mg IVP q4h PRN for nausea/vomiting -Daily IV protonix until tolerating PO -advance diet as tolerated -Fluid supplementation with NS at 100 cc/hr -Loperamide PRN for diarrhea Hx DM2 -Hold home diabetes medicines -ISS with point of care fingerstick glucose ACHS while admitted -A1c 6.4 -lipid panel wnl Hx HTN -Continue home lisinopril PPx, Diet, Disposition -DVT: lovenox -GI: protonix -Full code -Diet: clear liquid, advance as tolerated -PT on board Dispo: continue to monitor on the floor. PT. Pending results of wound/blood cx. Case reviewed and discussed with Dr. Chaney <Aurea Chaney - Last Filed: 09/15/18 07:11> Objective - Vital Signs/Intake and Output Vital Signs (last 24 hours): Temp Pulse Resp BP Pulse Ox 98.7 F 82 20 132/85 99 09/14/18 22:00 09/14/18 22:00 09/14/18 22:00 09/14/18 22:00 09/14/18 22:00 Intake and Output: 09/15/18 09/15/18 06:59 18:59 Intake Total 180 Balance 180 - Medications Medications: Current Medications Acetaminophen (Tylenol 325mg Tab) 650 mg PO Q6H PRN PRN Reason: Pain, moderate (4-7) Last Admin: 09/14/18 22:05 Dose: 650 mg Al Hydrox/Mg Hydrox/Simethicone (Maalox Plus 30 Ml) 30 ml PO BID PRN PRN Reason: Heartburn Alprazolam (Xanax) 0.5 mg PO HS PRN; Protocol PRN Reason: Anxiety Atorvastatin Calcium (Lipitor) 10 mg PO DIN [facility] Last Admin: 09/14/18 17:29 Dose: Not Given Famotidine (Pepcid) 20 mg PO HS [facility] Last Admin: 09/13/18 22:08 Dose: 20 mg Linezolid (Zyvox 600mg/300ml D5w) 600 mg in 300 mls @ 200 mls/hr IVPB Q12 [facility]; Protocol Stop: 09/20/18 10:01 Last Admin: 09/14/18 22:05 Dose: 200 mls/hr Insulin Human Lispro (Humalog Med) 0 units SC ACHS [facility]; Protocol Last Admin: 09/14/18 17:00 Dose: Not Given Lisinopril (Zestril) 10 mg PO DAILY [facility] Last Admin: 09/14/18 10:15 Dose: 10 mg Loperamide HCl (Imodium) 2 mg PO QID PRN PRN Reason: Diarrhea Ondansetron HCl (Zofran Inj) 4 mg IVP Q4H PRN PRN Reason: Nausea/Vomiting - Labs Labs: 09/14/18 07:00 09/14/18 07:00 PT 12.2 SECONDS (9.4-12.5) 09/12/18 19:52 INR 1.07 09/12/18 19:52 APTT 27.5 Seconds (25.1-36.5) 09/12/18 19:52 Attending/Attestation - Attestation I have personally seen and examined this patient.: Yes I have fully participated in the care of the patient.: Yes I have reviewed all pertinent clinical information, including history, physical exam and plan: Yes Notes (Text): 09/14/18 58 year old female with past medical history of diabetes and hypertension who presented with right thigh abscess. S/p bedside I&D POD #1. She is on iv antibiotics while awaiting wound culture. ID and surgery are following. She also complained on nausea, vomiting and stomach upset possible secondary to recent antibiotics or gastroenteritis. Symptoms improved. Continue with diet as tolerated. She also complained of chronic left leg weakness and falls. CT head was negative. PT evaluation is pending. Continue with lisinopril for hypertension. Aurea Cahney MD Hospitalist.
[2018-09-15 08:12] LABS: BASO # 0.02 K/mm3 (0.0-2.0); BASO % 0.3 % (0.0-3.0); EOS # 0.1 (0.0-0.7); EOS % 1.4 % (1.5-5.0); GRAN # 4.58 (1.4-6.5); GRAN % 59.1 % (50.0-68.0); HEMOGLOBIN 11.3 g/dL (12.0-16.0); LYMPH # 2.7 (1.2-3.4); LYMPH % 34.8 % (22.0-35.0); MEAN CELL VOLUME 88.9 fl (80.0-105.0); MEAN CORPUSCULAR HEMOGLOBIN 28.4 pg (25.0-35.0); MEAN CORPUSCULAR HGB CONC 31.9 g/dl (31.0-37.0); MEAN PLATELET VOLUME 8.8 fl (7.0-11.0); MONO # 0.3 (0.1-0.6); MONO % 4.4 % (1.0-6.0); RBC 3.98 10^6/uL (3.5-6.1); RED CELL DISTRIBUTION WIDTH 12.9 % (11.5-14.5); WHITE BLOOD COUNT 7.8 10^3/uL (4.5-11.0)
[2018-09-15 08:26] LABS: ALB/GLOB RATIO 1.1 (1.1-1.8); ALBUMIN 3.7 g/dL (3.0-4.8); ALT/SGPT 23 U/L (7-56); AST/SGOT 24 U/L (14-36); BLOOD UREA NITROGEN 7 mg/dL (7-21); CALCIUM 9.1 mg/dL (8.4-10.5); GFR NON-AFRICAN AMERICAN 57
[2018-09-15] MEDS: Insulin Lispro (humaLOG) MEDIUM Coverage SC SCH ×3 (08:36→16:35)
[2018-09-15] MEDS: Linezolid 600 mg in D5W 300 ml 600 MG/300 ML BAG IVPB SCH ×2 (09:57→22:33)
--- NOTE | 2018-09-15 10:38 | CARD ---
APPROVED REPORT Date of service: 09/14/2018 EKG Measurement Heart [id number] <Conclusion> Normal sinus rhythm Left axis deviation Possible Anterior infarct, age undetermined Abnormal ECG
--- NOTE | 2018-09-15 11:57 | RAD ---
Date of service: 09/14/2018 HISTORY: Chest pain COMPARISON: 09/12/2018 FINDINGS: LUNGS: The lungs are well inflated and clear. PLEURA: No pleural effusions or pneumothorax. CARDIOVASCULAR: The heart is normal in size. No aortic atherosclerotic calcification present. OSSEOUS STRUCTURES: Within normal limits for the patient's age. VISUALIZED UPPER ABDOMEN: Normal. OTHER FINDINGS: None. IMPRESSION: No active pulmonary disease.
--- NOTE | 2018-09-15 13:45 | CP.PCM.PN ---
Subjective - Date & Time of Evaluation Date of Evaluation: 09/15/18 Time of Evaluation: 12:15 - Subjective Subjective: Right thigh feels a little better, no fevers. Objective - Vital Signs/Intake and Output Vital Signs (last 24 hours): Temp Pulse Resp BP Pulse Ox 98.3 F 60 20 129/64 100 09/14/18 06:00 09/14/18 10:15 09/14/18 06:00 09/14/18 10:15 09/14/18 06:00 Intake and Output: 09/14/18 09/14/18 06:59 18:59 Intake Total 180 Balance 180 - Medications Medications: Current Medications Acetaminophen (Tylenol 325mg Tab) 650 mg PO Q6H PRN PRN Reason: Pain, moderate (4-7) Al Hydrox/Mg Hydrox/Simethicone (Maalox Plus 30 Ml) 30 ml PO BID PRN PRN Reason: Heartburn Atorvastatin Calcium (Lipitor) 10 mg PO DIN [facility] Famotidine (Pepcid) 20 mg PO HS [facility] Last Admin: 09/13/18 22:08 Dose: 20 mg Linezolid (Zyvox 600mg/300ml D5w) 600 mg in 300 mls @ 200 mls/hr IVPB Q12 [facility]; Protocol Stop: 09/20/18 10:01 Last Admin: 09/14/18 10:17 Dose: 200 mls/hr Insulin Human Lispro (Humalog Med) 0 units SC ACHS [facility]; Protocol Last Admin: 09/14/18 10:12 Dose: Not Given Lisinopril (Zestril) 10 mg PO DAILY [facility] Last Admin: 09/14/18 10:15 Dose: 10 mg Loperamide HCl (Imodium) 2 mg PO QID PRN PRN Reason: Diarrhea Ondansetron HCl (Zofran Inj) 4 mg IVP Q4H PRN PRN Reason: Nausea/Vomiting - Labs Labs: 09/14/18 07:00 09/14/18 07:00 PT 12.2 SECONDS (9.4-12.5) 09/12/18 19:52 INR 1.07 09/12/18 19:52 APTT 27.5 Seconds (25.1-36.5) 09/12/18 19:52 - Constitutional Appears: Chronically Ill - Head Exam Head Exam: NORMAL INSPECTION - Respiratory Exam Respiratory Exam: Decreased Breath Sounds - Cardiovascular Exam Cardiovascular Exam: +S1, +S2 - GI/Abdominal Exam GI & Abdominal Exam: Soft. absent: Tenderness Assessment and Plan - Assessment and Plan (Free Text) Plan: Assessment right lower extremity skin and skin structure infection with abscess HTN DM chronic renal failure Plan continue Zyvox day 3 pending final abscess culture results will continue to monitor clinically may need to have patient use antibacterial chlorhexidine soap for daily bathing
[2018-09-15 14:48] VITALS: O2SAT 97
--- NOTE | 2018-09-15 15:04 | CP.PCM.PN ---
<Chris Branham - Last Filed: 09/15/18 14:59> Subjective - Date & Time of Evaluation Date of Evaluation: 09/15/18 Time of Evaluation: 07:00 - Subjective Subjective: Chris Branham, PGY1 Medicine Progress Note for Dr. Chaney Patient was seen and examined at bedside this morning. Patient's pain is controlled s/p I&D of right groin abscess. Afebrile overnight. Yesterday, patient was having some chest discomfort and was noted to have elevated BP at 212/117. Chest discomfort was midsternal, lasted approximately 15 minutes. Today, she is not experiencing this chest pain. She denies sob, n/v/d, fevers, chills, numbness/tingling of ext. A full 12 point ROS was conducted and unremarkable except as stated above. Objective - Vital Signs/Intake and Output Vital Signs (last 24 hours): Temp Pulse Resp BP Pulse Ox 98.3 F 61 18 146/82 97 09/15/18 14:47 09/15/18 14:47 09/15/18 07:00 09/15/18 14:47 09/15/18 14:47 Intake and Output: 09/15/18 09/15/18 06:59 18:59 Intake Total 180 Balance 180 - Medications Medications: Current Medications Acetaminophen (Tylenol 325mg Tab) 650 mg PO Q6H PRN PRN Reason: Pain, moderate (4-7) Last Admin: 09/15/18 08:30 Dose: 650 mg Al Hydrox/Mg Hydrox/Simethicone (Maalox Plus 30 Ml) 30 ml PO BID PRN PRN Reason: Heartburn Alprazolam (Xanax) 0.5 mg PO HS PRN; Protocol PRN Reason: Anxiety Atorvastatin Calcium (Lipitor) 10 mg PO DIN [facility] Last Admin: 09/14/18 17:29 Dose: Not Given Famotidine (Pepcid) 20 mg PO HS [facility] Last Admin: 09/15/18 08:30 Dose: Not Given Linezolid (Zyvox 600mg/300ml D5w) 600 mg in 300 mls @ 200 mls/hr IVPB Q12 [facility]; Protocol Stop: 09/20/18 10:01 Last Admin: 09/15/18 09:57 Dose: 200 mls/hr Insulin Human Lispro (Humalog Med) 0 units SC ACHS [facility]; Protocol Last Admin: 09/15/18 08:36 Dose: Not Given Lisinopril (Zestril) 20 mg PO DAILY [facility] Loperamide HCl (Imodium) 2 mg PO QID PRN PRN Reason: Diarrhea Ondansetron HCl (Zofran Inj) 4 mg IVP Q4H PRN PRN Reason: Nausea/Vomiting - Labs Labs: 09/15/18 07:00 09/15/18 07:00 PT 12.2 SECONDS (9.4-12.5) 09/12/18 19:52 INR 1.07 09/12/18 19:52 APTT 27.5 Seconds (25.1-36.5) 09/12/18 19:52 - Constitutional Appears: Well, No Acute Distress - Head Exam Head Exam: ATRAUMATIC, NORMAL INSPECTION, NORMOCEPHALIC - Eye Exam Eye Exam: EOMI, Normal appearance, PERRL Pupil Exam: NORMAL ACCOMODATION, PERRL - ENT Exam ENT Exam: Mucous Membranes Moist, Normal Exam - Neck Exam Neck Exam: Full ROM, Normal Inspection. absent: Lymphadenopathy - Respiratory Exam Respiratory Exam: Clear to Ausculation Bilateral, NORMAL BREATHING PATTERN. absent: Rales, Rhonchi, Wheezes - Cardiovascular Exam Cardiovascular Exam: REGULAR RHYTHM, +S1, +S2. absent: Murmur - GI/Abdominal Exam GI & Abdominal Exam: Soft, Normal Bowel Sounds. absent: Guarding, Rigid, Tenderness, Organomegaly - Exam Additional comments: R-thigh abscess - no drainage. Dressing in place. - Extremities Exam Extremities Exam: Full ROM, Normal Capillary Refill, Normal Inspection. absent: Joint Swelling, Pedal Edema - Neurological Exam Neurological Exam: Alert, Awake, CN II-XII Intact, Normal Gait, Oriented x3 Neuro motor strength exam: Left Upper Extremity: 5, Right Upper Extremity: 5, Left Lower Extremity: 5, Right Lower Extremity: 5 - Skin Skin Exam: Dry, Intact, Normal Color, Warm Assessment and Plan - Assessment and Plan (Free Text) Assessment: Patient is a 58 y/o F with PMH of DM2 and HTN who was admitted for management of intractable nausea/vomiting and R thigh abscess. Patient also presented with chronic left leg weakness. Patient is s/p I&D of R-groin abscess. Plan: Right thigh Abscess - s/p I&D - c/w Linezolid IVP q12 (Day 3) - ID recs appreciated. - pending wound cx results - No complications from procedure - no fever or leukocytosis Chronic left leg weakness - PT recommends home with services - No acute issues at this time - Patient will benefit from PT Episode of chest discomfort with Hypertensive episode - improved - Most recent BP is 146/82 - troponin negative x2 - CXR: no active disease. - EKG: NSR. LAD. No ST or T wave changes. - BP elevated yesterday (SBP > 200) and given hydralazine; trending downwards today; adjusted to Lisinopril 20mg PO daily - continue to monitor - Patient has a history of HTN and usually takes home med: Lisinopril 10 mg PO daily Intractable nausea/vomiting possibly 2/2 antibx use or groin abscess - improved - associated diarrhea - C. diff negative; no complaints at this time - c/w Zofran prn - c/w pepcid - Diabetic diet - carb consistent - Loperamide PRN for diarrhea Hx DM2 - ISS with point of care fingerstick glucose ACHS while admitted - A1c 6.4 - lipid panel wnl PPx, Diet, Disposition -DVT: SCD -GI: pepcid Dispo: continue to monitor on the floor. PT recommends home with services. Pending results of wound/blood cx prior to discharge. Case reviewed and discussed with Dr. Chaney <Aurea Chaney - Last Filed: 09/15/18 16:12> Objective - Vital Signs/Intake and Output Vital Signs (last 24 hours): Temp Pulse Resp BP Pulse Ox 98.3 F 61 18 146/82 97 09/15/18 14:47 09/15/18 14:47 09/15/18 07:00 09/15/18 14:47 09/15/18 14:47 Intake and Output: 09/15/18 09/15/18 06:59 18:59 Intake Total 180 Balance 180 - Medications Medications: Current Medications Acetaminophen (Tylenol 325mg Tab) 650 mg PO Q6H PRN PRN Reason: Pain, moderate (4-7) Last Admin: 09/15/18 08:30 Dose: 650 mg Al Hydrox/Mg Hydrox/Simethicone (Maalox Plus 30 Ml) 30 ml PO BID PRN PRN Reason: Heartburn Alprazolam (Xanax) 0.5 mg PO HS PRN; Protocol PRN Reason: Anxiety Atorvastatin Calcium (Lipitor) 10 mg PO DIN [facility] Last Admin: 09/14/18 17:29 Dose: Not Given Famotidine (Pepcid) 20 mg PO HS [facility] Last Admin: 09/15/18 08:30 Dose: Not Given Linezolid (Zyvox 600mg/300ml D5w) 600 mg in 300 mls @ 200 mls/hr IVPB Q12 [facility]; Protocol Stop: 09/20/18 10:01 Last Admin: 09/15/18 09:57 Dose: 200 mls/hr Insulin Human Lispro (Humalog Med) 0 units SC ACHS [facility]; Protocol Last Admin: 09/15/18 08:36 Dose: Not Given Lisinopril (Zestril) 20 mg PO DAILY [facility] Loperamide HCl (Imodium) 2 mg PO QID PRN PRN Reason: Diarrhea Ondansetron HCl (Zofran Inj) 4 mg IVP Q4H PRN PRN Reason: Nausea/Vomiting - Labs Labs: 09/15/18 07:00 09/15/18 07:00 PT 12.2 SECONDS (9.4-12.5) 09/12/18 19:52 INR 1.07 09/12/18 19:52 APTT 27.5 Seconds (25.1-36.5) 09/12/18 19:52 Attending/Attestation - Attestation I have personally seen and examined this patient.: Yes I have fully participated in the care of the patient.: Yes I have reviewed all pertinent clinical information, including history, physical exam and plan: Yes Notes (Text): 09/15/18 16:09 58 year old female with past medical history of diabetes and hypertension who presented with right thigh abscess. S/p bedside I&D POD #2. She is on iv antibiotics while awaiting wound culture which is so far growing light growth staphylococcus species and bacillus species. Will follow up with ID recommendations. She also complained on nausea, vomiting and stomach upset possible secondary to recent antibiotics or gastroenteritis. Stool for CDif was negative. Symptoms improved. Continue with diet as tolerated. She also complained of chronic left leg weakness and falls. CT head was n egative. PT evaluation was appreciated who recommended home with outpatient PT. Continue with lisinopril for hypertension; dose was increased today. Aurea Chaney MD Hospitalist.
[2018-09-16] MEDS: Insulin Lispro (humaLOG) MEDIUM Coverage SC SCH ×5 (06:42→12:05)
[2018-09-16 07:51] LABS: BASO # 0.03 K/mm3 (0.0-2.0); BASO % 0.4 % (0.0-3.0); EOS # 0.1 (0.0-0.7); EOS % 1.8 % (1.5-5.0); GRAN # 4.2 (1.4-6.5); GRAN % 57.2 % (50.0-68.0); HEMOGLOBIN 12.6 g/dL (12.0-16.0); LYMPH # 2.7 (1.2-3.4); LYMPH % 36.8 % (22.0-35.0); MEAN CORPUSCULAR HEMOGLOBIN 29.6 pg (25.0-35.0); MEAN CORPUSCULAR HGB CONC 33.2 g/dl (31.0-37.0); MEAN PLATELET VOLUME 8.8 fl (7.0-11.0); MONO # 0.3 (0.1-0.6); MONO % 3.8 % (1.0-6.0); RBC 4.26 10^6/uL (3.5-6.1); RED CELL DISTRIBUTION WIDTH 12.9 % (11.5-14.5); WHITE BLOOD COUNT 7.3 10^3/uL (4.5-11.0)
[2018-09-16 08:08] LABS: ALB/GLOB RATIO 1.1 (1.1-1.8); ALBUMIN 4.1 g/dL (3.0-4.8); ALT/SGPT 25 U/L (7-56); AST/SGOT 29 U/L (14-36); BLOOD UREA NITROGEN 9 mg/dL (7-21); CALCIUM 9.5 mg/dL (8.4-10.5); GFR NON-AFRICAN AMERICAN 51
[2018-09-16 09:35] VITALS: BP 141/101; PULSE 71
[2018-09-16] MEDS: Linezolid 600 mg in D5W 300 ml 600 MG/300 ML BAG IVPB SCH (09:35)
[2018-09-16 09:53] VITALS: RESP 16; TEMP 97.6
--- NOTE | 2018-09-16 17:16 | CP.PCM.PN ---
Subjective - Date & Time of Evaluation Date of Evaluation: 09/16/18 Time of Evaluation: 11:10 - Subjective Subjective: Afebrile, comfortable, not in distress. Objective - Vital Signs/Intake and Output Vital Signs (last 24 hours): Temp Pulse Resp BP Pulse Ox 98 F 67 18 129/82 99 09/15/18 07:00 09/15/18 11:07 09/15/18 07:00 09/15/18 11:07 09/15/18 07:00 Intake and Output: 09/15/18 09/15/18 06:59 18:59 Intake Total 180 Balance 180 - Medications Medications: Current Medications Acetaminophen (Tylenol 325mg Tab) 650 mg PO Q6H PRN PRN Reason: Pain, moderate (4-7) Last Admin: 09/15/18 08:30 Dose: 650 mg Al Hydrox/Mg Hydrox/Simethicone (Maalox Plus 30 Ml) 30 ml PO BID PRN PRN Reason: Heartburn Alprazolam (Xanax) 0.5 mg PO HS PRN; Protocol PRN Reason: Anxiety Atorvastatin Calcium (Lipitor) 10 mg PO DIN [facility] Last Admin: 09/14/18 17:29 Dose: Not Given Famotidine (Pepcid) 20 mg PO HS [facility] Last Admin: 09/15/18 08:30 Dose: Not Given Linezolid (Zyvox 600mg/300ml D5w) 600 mg in 300 mls @ 200 mls/hr IVPB Q12 [facility]; Protocol Stop: 09/20/18 10:01 Last Admin: 09/15/18 09:57 Dose: 200 mls/hr Insulin Human Lispro (Humalog Med) 0 units SC ACHS [facility]; Protocol Last Admin: 09/15/18 08:36 Dose: Not Given Lisinopril (Zestril) 20 mg PO DAILY [facility] Loperamide HCl (Imodium) 2 mg PO QID PRN PRN Reason: Diarrhea Ondansetron HCl (Zofran Inj) 4 mg IVP Q4H PRN PRN Reason: Nausea/Vomiting - Labs Labs: 09/15/18 07:00 09/15/18 07:00 PT 12.2 SECONDS (9.4-12.5) 09/12/18 19:52 INR 1.07 09/12/18 19:52 APTT 27.5 Seconds (25.1-36.5) 09/12/18 19:52 - Constitutional Appears: Chronically Ill - Head Exam Head Exam: NORMAL INSPECTION - Respiratory Exam Respiratory Exam: Decreased Breath Sounds - Cardiovascular Exam Cardiovascular Exam: +S1, +S2 - GI/Abdominal Exam GI & Abdominal Exam: Soft. absent: Tenderness - Extremities Exam Additional comments: right thigh with dressings in place Assessment and Plan - Assessment and Plan (Free Text) Plan: Assessment right lower extremity skin and skin structure infection with abscess associated with Staph lugdunensis HTN DM chronic renal failure Plan continue Zyvox day 4 and should complete another 5-6 days - discussed with Dr. Chaney - told patient to follow up with PMD as an outpatient
--- NOTE | 2018-09-16 21:11 | CP.PCM.DIS ---
<YonasChris - Last Filed: 09/16/18 21:00> Provider - Provider Date of Admission: 09/13/18 19:02 Attending physician: Aurea Chaney MD Time Spent in preparation of Discharge (in minutes): 35 Hospital Course - Lab Results Lab Results: Micro Results 09/13/18 06:00 Thigh - Right Gram Stain - Final 09/13/18 06:00 Thigh - Right Wound Culture - Final Staphylococcus Lugdunensis Bacillus Species 09/12/18 22:00 Blood Blood Culture - Preliminary NO GROWTH AFTER 3 DAYS 09/12/18 21:30 Blood Blood Culture - Preliminary NO GROWTH AFTER 3 DAYS 09/14/18 14:30 Stool C. difficile Antigen & Toxins A,B - Final Most Recent Lab Values WBC 7.3 10^3/uL (4.5-11.0) 09/16/18 07:20 RBC 4.26 10^6/uL (3.5-6.1) 09/16/18 07:20 Hgb 12.6 g/dL (12.0-16.0) 09/16/18 07:20 Hct 37.9 % (36.0-48.0) 09/16/18 07:20 MCV 89.0 fl (80.0-105.0) 09/16/18 07:20 MCH 29.6 pg (25.0-35.0) 09/16/18 07:20 MCHC 33.2 g/dl (31.0-37.0) 09/16/18 07:20 RDW 12.9 % (11.5-14.5) 09/16/18 07:20 Plt Count 341 10^3/uL (120.0-450.0) 09/16/18 07:20 MPV 8.8 fl (7.0-11.0) 09/16/18 07:20 Gran % 57.2 % (50.0-68.0) 09/16/18 07:20 Lymph % (Auto) 36.8 % (22.0-35.0) H 09/16/18 07:20 [place] % (Auto) 3.8 % (1.0-6.0) 09/16/18 07:20 Eos % (Auto) 1.8 % (1.5-5.0) 09/16/18 07:20 Baso % (Auto) 0.4 % (0.0-3.0) 09/16/18 07:20 Gran # 4.20 (1.4-6.5) 09/16/18 07:20 Lymph # (Auto) 2.7 (1.2-3.4) 09/16/18 07:20 [place] # (Auto) 0.3 (0.1-0.6) 09/16/18 07:20 Eos # (Auto) 0.1 (0.0-0.7) 09/16/18 07:20 Baso # (Auto) 0.03 K/mm3 (0.0-2.0) 09/16/18 07:20 PT 12.2 SECONDS (9.4-12.5) 09/12/18 19:52 INR 1.07 09/12/18 19:52 APTT 27.5 Seconds (25.1-36.5) 09/12/18 19:52 Sodium 142 mmol/L (132-148) 09/16/18 07:20 Potassium 4.0 mmol/L (3.6-5.0) 09/16/18 07:20 Chloride 105 mmol/L (98-107) 09/16/18 07:20 Carbon Dioxide 28 mmol/L (21-33) 09/16/18 07:20 Anion Gap 14 (10-20) 09/16/18 07:20 BUN 9 mg/dL (7-21) 09/16/18 07:20 Creatinine 1.1 mg/dl (0.7-1.2) 09/16/18 07:20 Est GFR ( Amer) > 60 09/16/18 07:20 Est GFR (Non-Af Amer) 51 09/16/18 07:20 POC Glucose (mg/dL) 130 mg/dL (65-110) H 09/16/18 11:09 Random Glucose 114 mg/dL (70-110) H 09/16/18 07:20 Hemoglobin A1c 6.4 % (4.2-6.5) 09/13/18 07:00 Calcium 9.5 mg/dL (8.4-10.5) 09/16/18 07:20 Phosphorus 4.1 mg/dL (2.5-4.5) 09/13/18 07:00 Magnesium 2.0 mg/dL (1.7-2.2) 09/13/18 07:00 Total Bilirubin 0.5 mg/dL (0.2-1.3) 09/16/18 07:20 AST 29 U/L (14-36) 09/16/18 07:20 ALT 25 U/L (7-56) 09/16/18 07:20 Alkaline Phosphatase 57 U/L (38-126) 09/16/18 07:20 Lactate Dehydrogenase 557 U/L (333-699) 09/12/18 19:52 Total Creatine Kinase 286 U/L (35-230) H 09/12/18 19:52 CK-MB (CK-2) 2.5 ng/mL (0.0-3.6) 09/12/18 19:52 CK-MB (CK-2) % Cancelled 09/12/18 19:52 Troponin I 0.01 ng/mL 09/15/18 07:00 Total Protein 7.8 g/dL (5.8-8.3) 09/16/18 07:20 Albumin 4.1 g/dL (3.0-4.8) 09/16/18 07:20 Globulin 3.7 gm/dL 09/16/18 07:20 Albumin/Globulin Ratio 1.1 (1.1-1.8) 09/16/18 07:20 Triglycerides 76 mg/dL (35-160) 09/13/18 07:00 Cholesterol 135 mg/dL (130-200) 09/13/18 07:00 LDL Cholesterol Direct 79 mg/dL (0-129) 09/13/18 07:00 HDL Cholesterol 38 mg/dL (29-60) 09/13/18 07:00 Lipase 57 U/L (23-300) 09/12/18 19:52 Urine Color Yellow (YELLOW) 09/13/18 05:25 Urine Appearance Sl cloudy (CLEAR) 09/13/18 05:25 Urine pH 5.5 (4.7-8.0) 09/13/18 05:25 Ur Specific [place] 1.025 (1.005-1.035) 09/13/18 05:25 Urine Protein Negative mg/dL (<30 mg/dL) 09/13/18 05:25 Urine Glucose (UA) Negative mg/dL (NEGATIVE) 09/13/18 05:25 Urine Ketones 15 mg/dL (NEGATIVE) H 09/13/18 05:25 Urine Blood Negative (NEGATIVE) 09/13/18 05:25 Urine Nitrate Negative (NEGATIVE) 09/13/18 05:25 Urine Bilirubin Negative (NEGATIVE) 09/13/18 05:25 Urine Urobilinogen 0.2 E.U./dL (<1 E.U./dL) 09/13/18 05:25 Ur Leukocyte Esterase Negative Nicol/uL (NEGATIVE) 09/13/18 05:25 HIV 1&2 Ag/Ab, 4th Gen Nonreactive (Nonreactive) 09/13/18 10:00 - Hospital Course Hospital Course: Chris Branham, PGY1 Discharge Summary for Dr. Chaney Patient is a 58 year old female with PMH of DM2 and HTN who presents to ED with intractable nausea/vomiting worsening for one day in duration. She saw her PMD for concern of an area of worsening redness and swelling on her R medial thigh. PMD prescribed an antibiotic which she filled and took x 1 dose. Since then she has felt nauseous, vomited twice, and has felt dizzy. Patient was admitted by the medical team. Wound and blood culture were obtained. Patient also has chronic leg weakness and headache, for which Head CT was negative for acute intracranial pathology. ID and surgery were both consulted. ID started the patient on IV antibiotics (Zyvox) for initial cx growing staph and bacillus species. Surgery did a bedside I&D on 09/13 with dressing changes as needed. No complications from I&D. Patient also had some diarrhea during hospital course. C. Diff was negative. Patient also had some palpitations and elevated blood pressure during hospital stay. Her home med lisinopril was adjusted to 20mg PO daily. Patient's nausea and vomiting was possibly 2/2 recent antibiotic use or gastroenteritis. PT evaluated patient for chronic leg weakness for which they recommended home with outpatient PT. Patient has clinically improved during hospital course. Vital signs stable. She is to be discharged home on PO Zyvox and her new dose of Lisinopril. Discharge Exam - Head Exam Head Exam: NORMAL INSPECTION - Eye Exam Eye Exam: EOMI, Normal appearance, PERRL Pupil Exam: NORMAL ACCOMODATION, PERRL - ENT Exam ENT Exam: Mucous Membranes Moist, Normal Exam - Neck Exam Neck exam: Normal Inspection - Respiratory Exam Respiratory Exam: Clear to PA & Lateral. absent: Rales, Rhonchi, Wheezes - Cardiovascular Exam Cardiovascular Exam: REGULAR RHYTHM, +S1, +S2 - GI/Abdominal Exam GI & Abdominal Exam: Normal Bowel Sounds - Exam Additional comments: s/p I&D of R-groin abscess. Dressing in place. No blood or pustular drainage. - Extremities Exam Extremities exam: full ROM, pedal pulses present - Back Exam Back exam: NORMAL INSPECTION - Neurological Exam Neurological exam: Alert, Normal Gait, Oriented x3 - Psychiatric Exam Psychiatric exam: Normal Affect, Normal Mood - Skin Skin Exam: Dry, Intact, Normal Color, Warm Discharge Plan - Discharge Medications Prescriptions: Linezolid [Zyvox] 600 mg PO Q12 #10 tab Lisinopril [Zestril] 20 mg PO DAILY #14 tab - Follow Up Plan Condition: STABLE Disposition: HOME/ ROUTINE Instructions: Diabetes Exchange Diet, High Blood Pressure (DC), Cellulitis (Skin Infection), Adult (DC), Diabetes and Infections, Diabetes and Diet Additional Instructions: 1. You are being prescribed an antibiotic, Zyvox 600mg twice a day for a total of 5 days. Please take as prescribed. 2. Your home blood pressure medication was adjusted. Please take Lisinopril 20mg once a day. 3. Please follow up with your primary care physician (PCP) within 1 week of discharge from the hospital. 4. Please return to the Emergency Department if symptoms reoccur (worsening vomiting, groin pain, fever, chills,). <Aurea Chaney - Last Filed: 09/17/18 08:05> Provider - Provider Date of Admission: 09/13/18 19:02 Attending physician: Aurea Chaney MD Hospital Course - Lab Results Lab Results: Micro Results 09/12/18 22:00 Blood Blood Culture - Preliminary NO GROWTH AFTER 4 DAYS 09/12/18 21:30 Blood Blood Culture - Preliminary NO GROWTH AFTER 4 DAYS 09/13/18 06:00 Thigh - Right Gram Stain - Final 09/13/18 06:00 Thigh - Right Wound Culture - Final Staphylococcus Lugdunensis Bacillus Species 09/14/18 14:30 Stool C. difficile Antigen & Toxins A,B - Final Most Recent Lab Values WBC 7.3 10^3/uL (4.5-11.0) 09/16/18 07:20 RBC 4.26 10^6/uL (3.5-6.1) 09/16/18 07:20 Hgb 12.6 g/dL (12.0-16.0) 09/16/18 07:20 Hct 37.9 % (36.0-48.0) 09/16/18 07:20 MCV 89.0 fl (80.0-105.0) 09/16/18 07:20 MCH 29.6 pg (25.0-35.0) 09/16/18 07:20 MCHC 33.2 g/dl (31.0-37.0) 09/16/18 07:20 RDW 12.9 % (11.5-14.5) 09/16/18 07:20 Plt Count 341 10^3/uL (120.0-450.0) 09/16/18 07:20 MPV 8.8 fl (7.0-11.0) 09/16/18 07:20 Gran % 57.2 % (50.0-68.0) 09/16/18 07:20 Lymph % (Auto) 36.8 % (22.0-35.0) H 09/16/18 07:20 [place] % (Auto) 3.8 % (1.0-6.0) 09/16/18 07:20 Eos % (Auto) 1.8 % (1.5-5.0) 09/16/18 07:20 Baso % (Auto) 0.4 % (0.0-3.0) 09/16/18 07:20 Gran # 4.20 (1.4-6.5) 09/16/18 07:20 Lymph # (Auto) 2.7 (1.2-3.4) 09/16/18 07:20 [place] # (Auto) 0.3 (0.1-0.6) 09/16/18 07:20 Eos # (Auto) 0.1 (0.0-0.7) 09/16/18 07:20 Baso # (Auto) 0.03 K/mm3 (0.0-2.0) 09/16/18 07:20 PT 12.2 SECONDS (9.4-12.5) 09/12/18 19:52 INR 1.07 09/12/18 19:52 APTT 27.5 Seconds (25.1-36.5) 09/12/18 19:52 Sodium 142 mmol/L (132-148) 09/16/18 07:20 Potassium 4.0 mmol/L (3.6-5.0) 09/16/18 07:20 Chloride 105 mmol/L (98-107) 09/16/18 07:20 Carbon Dioxide 28 mmol/L (21-33) 09/16/18 07:20 Anion Gap 14 (10-20) 09/16/18 07:20 BUN 9 mg/dL (7-21) 09/16/18 07:20 Creatinine 1.1 mg/dl (0.7-1.2) 09/16/18 07:20 Est GFR ( Amer) > 60 09/16/18 07:20 Est GFR (Non-Af Amer) 51 09/16/18 07:20 POC Glucose (mg/dL) 130 mg/dL (65-110) H 09/16/18 11:09 Random Glucose 114 mg/dL (70-110) H 09/16/18 07:20 Hemoglobin A1c 6.4 % (4.2-6.5) 09/13/18 07:00 Calcium 9.5 mg/dL (8.4-10.5) 09/16/18 07:20 Phosphorus 4.1 mg/dL (2.5-4.5) 09/13/18 07:00 Magnesium 2.0 mg/dL (1.7-2.2) 09/13/18 07:00 Total Bilirubin 0.5 mg/dL (0.2-1.3) 09/16/18 07:20 AST 29 U/L (14-36) 09/16/18 07:20 ALT 25 U/L (7-56) 09/16/18 07:20 Alkaline Phosphatase 57 U/L (38-126) 09/16/18 07:20 Lactate Dehydrogenase 557 U/L (333-699) 09/12/18 19:52 Total Creatine Kinase 286 U/L (35-230) H 09/12/18 19:52 CK-MB (CK-2) 2.5 ng/mL (0.0-3.6) 09/12/18 19:52 CK-MB (CK-2) % Cancelled 09/12/18 19:52 Troponin I 0.01 ng/mL 09/15/18 07:00 Total Protein 7.8 g/dL (5.8-8.3) 09/16/18 07:20 Albumin 4.1 g/dL (3.0-4.8) 09/16/18 07:20 Globulin 3.7 gm/dL 09/16/18 07:20 Albumin/Globulin Ratio 1.1 (1.1-1.8) 09/16/18 07:20 Triglycerides 76 mg/dL (35-160) 09/13/18 07:00 Cholesterol 135 mg/dL (130-200) 09/13/18 07:00 LDL Cholesterol Direct 79 mg/dL (0-129) 09/13/18 07:00 HDL Cholesterol 38 mg/dL (29-60) 09/13/18 07:00 Lipase 57 U/L (23-300) 09/12/18 19:52 Urine Color Yellow (YELLOW) 09/13/18 05:25 Urine Appearance Sl cloudy (CLEAR) 09/13/18 05:25 Urine pH 5.5 (4.7-8.0) 09/13/18 05:25 Ur Specific [place] 1.025 (1.005-1.035) 09/13/18 05:25 Urine Protein Negative mg/dL (<30 mg/dL) 09/13/18 05:25 Urine Glucose (UA) Negative mg/dL (NEGATIVE) 09/13/18 05:25 Urine Ketones 15 mg/dL (NEGATIVE) H 09/13/18 05:25 Urine Blood Negative (NEGATIVE) 09/13/18 05:25 Urine Nitrate Negative (NEGATIVE) 09/13/18 05:25 Urine Bilirubin Negative (NEGATIVE) 09/13/18 05:25 Urine Urobilinogen 0.2 E.U./dL (<1 E.U./dL) 09/13/18 05:25 Ur Leukocyte Esterase Negative Nicol/uL (NEGATIVE) 09/13/18 05:25 HIV 1&2 Ag/Ab, 4th Gen Nonreactive (Nonreactive) 09/13/18 10:00 Attending/Attestation - Attestation I have personally seen and examined this patient.: Yes I have fully participated in the care of the patient.: Yes I have reviewed all pertinent clinical information, including history, physical exam and plan: Yes Notes (Text): 09/16/18 58 year old female with past medical history of diabetes and hypertension who pr esented with right thigh abscess. S/p bedside I&D POD #3. She was on iv antibiotics. Wound culture grew staphylococcus lugdunensis. Case was discussed with ID who recommended to discharge on po zyvox. She also initially complained on nausea, vomiting and stomach upset possible secondary to recent antibiotics or gastroenteritis. Stool for CDif was negative. Symptoms resolved and she has been tolerating diet. She complained of chronic left leg weakness and falls. CT head was negative. She was seen by PT who recommended home with home services. She was on lisinopril for hypertension; dose was increased due to elevated BP. Patient is discharged home to follow up with pmd. Continue with antibiotics. Aurea Chaney MD Hospitalist.
== END 2018-09-16 16:56 | disposition home or self-care (01) | DRG 383 ==
LOC: ED 18:26 → ERH 21:27 → 5RSO 09-13 00:13 → OBSVTOIN 09-13 19:02
PROVIDERS: ADMIT Hospitalist; ATTEND Internal Medicine
DX: L02.415 Cutaneous abscess of right lower limb (principal); E11.22 Type 2 diabetes mellitus with diabetic chronic kidney disease; N18.3 Chronic kidney disease, stage 3 (moderate); I12.9 Hypertensive chronic kidney disease with stage 1 through stage 4 chronic kidney disease, or unspecified chronic kidney disease; F10.129 Alcohol abuse with intoxication, unspecified; L02.214 Cutaneous abscess of groin; K52.9 Noninfective gastroenteritis and colitis, unspecified; L03.90 Cellulitis, unspecified; Z80.1 Family history of malignant neoplasm of trachea, bronchus and lung; Z83.3 Family history of diabetes mellitus; Z90.49 Acquired absence of other specified parts of digestive tract; Z88.5 Allergy status to narcotic agent; B95.7 Other staphylococcus as the cause of diseases classified elsewhere